=== PATIENT | female | born 1960 ===

== ENCOUNTER 2016-09-11 18:12 | Emergency (ER) | payer MEDICAID ==
[2016-09-11 18:12] VITALS: BMI 27.6
[2016-09-11 18:24] VITALS: BP 115/68; PULSE 77; RESP 18; TEMP 97.8; O2SAT 100
[2016-09-11] MEDS ORDERED: Alum-Mag Hydrox-Simethicone Susp (30 mL) PO STA (20:40)
--- NOTE | 2016-09-11 20:43 | ED PDOC ---
HPI: Chest Pain Time Seen by Provider: 09/11/16 20:08 Chief Complaint (Nursing): Chest Pain Chief Complaint (Provider): Abdominal pain History Per: Patient Additional Complaint(s): 55 yo female, PMH of gastritis, presents to ED with complaints of 1 month of intermittent epigastric abdominal pain, radiating to RUQ, worsening in last 3 days. Pt notes associated nausea and metallic taste in mouth. Past Medical History Vital Signs: Last Vital Signs Temp 97.8 F 09/11/16 18:24 Pulse 77 09/11/16 18:24 Resp 18 09/11/16 18:24 BP 115/68 09/11/16 18:24 Pulse Ox 100 09/11/16 18:24 - Medical History PMH: Anxiety (per old chart, pt denies), Depression (per old chart, pt denies), Gastritis, Osteoporosis, Pancreatitis Denies: Diabetes, Hepatitis, HIV, HTN, Chronic Kidney Disease, Seizures, Sexually Transmitted Disease - Surgical History Surgical History: Appendectomy, Cholecystectomy - Family History Family History: States: Unknown Family Hx - Home Medications Home Medications: Ambulatory Orders Medication Instructions Recorded ALPRAZolam [Xanax] 0.25 mg PO DAILY PRN #10 tab 04/08/16 - Allergies Allergies/Adverse Reactions: Allergies Allergy/AdvReac Type Severity Reaction Status Date / Time tetracycline Allergy Mild RASH Verified 09/11/16 18:17 iodine Allergy ANAPHYLAXIS Verified 09/11/16 18:17 morphine Allergy ANAPHYLAXIS Verified 09/11/16 18:17 Penicillins Allergy ANAPHYLAXIS Verified 09/11/16 18:17 Tetracyclines Allergy RASH Verified 09/11/16 18:17 - ECG O2 Sat by Pulse Oximetry: 100
[2016-09-11 21:14] LABS: BASO % 0.5 % (0.0-2.0); EOS # 0.2 K/uL (0.0-0.7); EOS % 4.3 % (0.0-4.0); HEMATOCRIT 35.8 % (34.0-47.0); LYMPH # 2.2 K/uL (1.0-4.3); LYMPH % 38.8 % (20.0-40.0); MEAN CELL VOLUME 93.6 fl (81.0-99.0); MEAN CORPUSCULAR HEMOGLOBIN 30.6 pg (27.0-31.0); MEAN CORPUSCULAR HGB CONC 32.7 g/dL (33.0-37.0); MEAN PLATELET VOLUME 8.1 fl (7.2-11.7); MONO # 0.4 K/uL (0.0-0.8); MONO % 6.7 % (0.0-10.0); NEUT # 2.8 K/uL (1.8-7.0); NEUT % 49.7 % (50.0-75.0); RED CELL DISTRIBUTION WIDTH 13.2 % (11.5-14.5); WHITE BLOOD COUNT 5.6 K/uL (4.8-10.8)
[2016-09-11 21:28] LABS: RBC URINE 2 /hpf (0-3); URINE BILIRUBIN NEGATIVE (NEGATIVE); URINE BLOOD NEGATIVE (NEGATIVE); URINE COLOR STRAW (YELLOW); URINE GLUCOSE (UA) NEG (Normal); URINE KETONE NEGATIVE (NEGATIVE); URINE LEUKOCYTE ESTERASE MOD Leu/uL (Negative); URINE PROTEIN NEGATIVE (NEGATIVE); URINE UROBILINOGEN 0.2-1.0 mg/dL (0.2-1.0); WBC URINE 8 /hpf (0-5)
[2016-09-11 21:33] LABS: ALB/GLOB RATIO 1.1 (1.0-2.1); ALKALINE PHOSPHATASE 99 U/L (38-126); ALT/SGPT 38 U/L (9-52); AMYLASE 155 U/L (30-110); AST/SGOT 22 U/L (14-36); BILIRUBIN,TOTAL 0.2 mg/dl (0.2-1.3); BLOOD UREA NITROGEN 15 mg/dl (7-17); CALCIUM 9.5 mg/dL (8.4-10.2); CARBON DIOXIDE 24 mmol/L (22-30); CHLORIDE 108 mmol/L (98-107); GFR AFRICAN-AMERICAN > 60; GLUCOSE,RANDOM 89 mg/dL (65-105); LIPASE 229 U/L (23-300); SODIUM 141 mmol/l (132-148); TOTAL PROTEIN 7.6 G/DL (6.3-8.2)
--- NOTE | 2016-09-12 12:09 | RAD ---
HISTORY: upper abdominal pain COMPARISON: Chest x-ray performed 04/10/16, CT chest without contrast performed 07/26/16 TECHNIQUE: Chest, one view. FINDINGS: External cardiac monitoring leads. LUNGS: No focal consolidation. Please note that chest x-ray has limited sensitivity for the detection of pulmonary masses. PLEURA: No significant pleural effusion identified. No definite pneumothorax . CARDIOVASCULAR: The cardiomediastinal silhouette appears within normal limits of size. OSSEOUS STRUCTURES: No acute osseous abnormality identified. VISUALIZED UPPER ABDOMEN: Unremarkable. OTHER FINDINGS: None. IMPRESSION: No focal consolidation, significant pleural effusion, or definite pneumothorax identified.
--- NOTE | 2016-09-14 12:01 | CARD ---
APPROVED REPORT EKG Measurement Heart [id number] <Conclusion> Normal sinus rhythm Normal ECG
== END 2016-09-12 01:25 | disposition home or self-care (01) ==
LOC: H.ER 18:12
DX: R10.13 Epigastric pain (principal); R11.0 Nausea; Z88.0 Allergy status to penicillin

== ENCOUNTER 2016-09-19 13:15 | Observation (INO) | payer MEDICAID ==
[2016-09-19 13:24] VITALS: BMI 25.2
[2016-09-19 13:26] VITALS: BP 122/72; PULSE 80; RESP 19; TEMP 98.1; O2SAT 99
[2016-09-19] MEDS ORDERED: Sodium Chloride 0.9% 1,000 ML IV STA (14:07)
--- NOTE | 2016-09-19 14:25 | ED PDOC ---
HPI: Abdomen Time Seen by Provider: 09/19/16 13:30 Chief Complaint (Nursing): Abdominal Pain Chief Complaint (Provider): Abdominal Pain History Per: Patient History/Exam Limitations: no limitations Onset/Duration Of Symptoms: Days (x2 weeks) Location Of Pain/Discomfort: RUQ (radiating to the back (right side)) Quality Of Discomfort: Gas Associated Symptoms: Diarrhea (Yellow-greenish in color), Back Pain. denies: Fever Additional Complaint(s): 55 y/o female with a past medical history of pancreatitis presents to the emergency department complaining of abdominal pain that radiates to the right side of the back pain. Associated with gases and diarrhea (green-yellowish in color). Denies any further complaints. Past Medical History Reviewed: Historical Data, Nursing Documentation, Vital Signs Vital Signs: Last Vital Signs Temp 98.1 F 09/19/16 13:24 Pulse 80 09/19/16 13:24 Resp 19 09/19/16 13:24 BP 122/72 09/19/16 13:24 Pulse Ox 99 09/19/16 15:41 - Medical History PMH: Anxiety (per old chart, pt denies), Depression (per old chart, pt denies), Gastritis, Osteoporosis, Pancreatitis Denies: Diabetes, Hepatitis, HIV, HTN, Chronic Kidney Disease, Seizures, Sexually Transmitted Disease - Surgical History Surgical History: Appendectomy, Cholecystectomy, - Family History Family History: States: Unknown Family Hx - Social History Current smoker - smoking cessation education provided: No Alcohol: None Drugs: Denies - Home Medications Home Medications: Ambulatory Orders Medication Instructions Recorded Esomeprazole Magnesium [Nexium] 20 mg PO DAILY #20 ecc 09/12/16 ALPRAZolam [Xanax] 0.25 mg PO BID PRN 09/19/16 Citalopram Hydrobromide [Celexa] 10 mg PO DAILY 09/19/16 Famotidine [Pepcid] 20 mg PO BID PRN #10 tab 09/19/16 - Allergies Allergies/Adverse Reactions: Allergies Allergy/AdvReac Type Severity Reaction Status Date / Time tetracycline Allergy Mild RASH Verified 09/19/16 13:24 iodine Allergy ANAPHYLAXIS Verified 09/19/16 13:24 morphine Allergy ANAPHYLAXIS Verified 09/19/16 13:24 Penicillins Allergy ANAPHYLAXIS Verified 09/19/16 13:24 Tetracyclines Allergy RASH Verified 09/19/16 13:24 Review of Systems ROS Statement: Except As Marked, All Systems Reviewed And Found Negative Constitutional: Negative for: Fever Gastrointestinal: Positive for: Abdominal Pain, Diarrhea, Other (Gases) Musculoskeletal: Positive for: Back Pain Physical Exam - Reviewed Nursing Documentation Reviewed: Yes Vital Signs Reviewed: Yes - Physical Exam Appears: Positive for: Well Head Exam: Positive for: ATRAUMATIC, NORMAL INSPECTION, NORMOCEPHALIC Skin: Positive for: Normal Color, Warm, Dry Eye Exam: Positive for: Normal appearance Gastrointestinal/Abdominal: Positive for: Soft, Tenderness (Epigastric tenderness). Negative for: Normal Exam - Laboratory Results Result Diagrams: 09/19/16 14:11 09/19/16 14:11 - ECG O2 Sat by Pulse Oximetry: 99 (RA) Pulse Ox Interpretation: Normal Medical Decision Making Medical Decision Making: Time: 1407 Initial impression: Abdominal pain Initial plan: --Abd & Pelvis w/o PO or IV Contrast CT --COMP metabolic panel --Lipase --Cbc w/ differential --Pepcid 20 mg IVP --Sodium Chloride 1,000 ml IV 150 mls/hr --Zofran INJ 4 mg IV --Admit to hospital routine: Observation for abdominal pain. Scribe Attestation: Documented by Bailee Valero, acting as a scribe for Yoandy Mendez MD. Provider Scribe Attestation: All medical record entries made by the Scribe were at my direction and personally dictated by me. I have reviewed the chart and agree that the record accurately reflects my personal performance of the history, physical exam, medical decision making, and the department course for this patient. I have also personally directed, reviewed, and agree with the discharge instructions and disposition. ED OBSERVATION Date of observation admission: 09/19/16 Time of observation admission: 14:09 - Observation admission statement Patient is being placed in observation because:: abdominal pain. - Goals of Observation Goals of observation are:: pending CT scan, and reassessment. - Progress Note Progress Note: 09/19/16 15:06 --Abdomen/Pelvis CT FINDINGS: LOWER THORAX: Unremarkable. LIVER: Unremarkable. No gross lesion or ductal dilatation. GALLBLADDER AND BILE DUCTS: Gallbladder not seen. No intrahepatic biliary ductal dilatation. PANCREAS: Unremarkable. No mass. No ductal dilatation. SPLEEN: No splenomegaly. Punctate calcification in the spleen likely granuloma. ADRENALS: Unremarkable. KIDNEYS AND URETERS: Unremarkable. No stone or hydronephrosis. BLADDER: Grossly unremarkable. REPRODUCTIVE: Please note that evaluation of gynecologic organs is not optimal on CT imaging. APPENDIX: No evidence of acute appendicitis. BOWEL: Collapsed colon throughout its course limiting evaluation. Minimal diverticulosis without evidence of diverticulitis. PERITONEUM: Unremarkable. No fluid collection. No free air. LYMPH NODES: No enlarged lymph nodes. VASCULATURE: Unremarkable. No aortic aneurysm. BONES: No fracture or destructive lesion. OTHER FINDINGS: Calcified nodule in the posterior soft tissues on the left. IMPRESSION: No acute findings. Time: 15:39 --Labs were reviewed and show no significant abnormalities. Lipase results are normal. --Patient is ready for discharge. --Upon provider reevaluation patient is feeling better, is medically stable, and requires no further treatment in the ED at this time. Patient will be discharged home with Rx for Pepcid 20 mg. Counseling was provided and all questions were answered regarding diagnosis and need for follow up with primary care doctor. There is agreement to discharge plan. Return if symptoms persist or worsen. Clinical Impression: Gastritis Disposition - Clinical Impression Clinical Impression: Gastritis - Patient ED Disposition Is Patient to be Admitted: No Counseled Patient/Family Regarding: Studies Performed, Diagnosis, Need For Followup - Disposition Disposition: Routine/Home Disposition Time: 15:00 Condition: STABLE
[2016-09-19 14:30] LABS: BASO % 0.8 % (0.0-2.0); EOS # 0.1 K/uL (0.0-0.7); EOS % 2.4 % (0.0-4.0); HEMOGLOBIN 12.4 g/dL (12.0-16.0); LYMPH # 1.7 K/uL (1.0-4.3); LYMPH % 34.2 % (20.0-40.0); MEAN CELL VOLUME 93.2 fl (81.0-99.0); MEAN CORPUSCULAR HGB CONC 33.2 g/dL (33.0-37.0); MEAN PLATELET VOLUME 8.8 fl (7.2-11.7); MONO # 0.4 K/uL (0.0-0.8); MONO % 8.3 % (0.0-10.0); NEUT # 2.7 K/uL (1.8-7.0); NEUT % 54.3 % (50.0-75.0); NRBC % 0.1 % (0.0-0.0); RED CELL DISTRIBUTION WIDTH 13.3 % (11.5-14.5); WHITE BLOOD COUNT 4.9 K/uL (4.8-10.8)
[2016-09-19 14:48] LABS: ALB/GLOB RATIO 1.2 (1.0-2.1); ALBUMIN 4.1 g/dL (3.5-5.0); ALT/SGPT 32 U/L (9-52); AST/SGOT 22 U/L (14-36); BLOOD UREA NITROGEN 12 mg/dl (7-17); CALCIUM 9.8 mg/dL (8.4-10.2); GFR AFRICAN-AMERICAN > 60; GFR NON-AFRICAN AMERICAN > 60; LIPASE 152 U/L (23-300)
--- NOTE | 2016-09-19 15:08 | CT ---
PROCEDURE: CT Abdomen and Pelvis without contrast. HISTORY: abdominal pain COMPARISON: 08/11/2015 TECHNIQUE: Contiguous axial images of the abdomen and pelvis. No oral or IV contrast given. Coronal and Sagittal reformats generated. Please note that due to lack of intravenous and oral contrast, evaluation of soft tissue structures and bowel is limited. Radiation dose: Total exam DLP = 550.75 mGy-cm. This CT exam was performed using one or more of the following dose reduction techniques: Automated exposure control, adjustment of the mA and/or kV according to patient size, and/or use of iterative reconstruction technique. FINDINGS: LOWER THORAX: Unremarkable. LIVER: Unremarkable. No gross lesion or ductal dilatation. GALLBLADDER AND BILE DUCTS: Gallbladder not seen. No intrahepatic biliary ductal dilatation. PANCREAS: Unremarkable. No mass. No ductal dilatation. SPLEEN: No splenomegaly. Punctate calcification in the spleen likely granuloma. ADRENALS: Unremarkable. KIDNEYS AND URETERS: Unremarkable. No stone or hydronephrosis. BLADDER: Grossly unremarkable. REPRODUCTIVE: Please note that evaluation of gynecologic organs is not optimal on CT imaging. APPENDIX: No evidence of acute appendicitis. BOWEL: Collapsed colon throughout its course limiting evaluation. Minimal diverticulosis without evidence of diverticulitis. PERITONEUM: Unremarkable. No fluid collection. No free air. LYMPH NODES: No enlarged lymph nodes. VASCULATURE: Unremarkable. No aortic aneurysm. BONES: No fracture or destructive lesion. OTHER FINDINGS: Calcified nodule in the posterior soft tissues on the left. IMPRESSION: No acute findings.
== END 2016-09-19 16:06 | disposition home or self-care (01) ==
LOC: H.ER 13:15 → H.EROBSV 14:09
PROVIDERS: ADMIT Emergency Medicine; ATTEND Emergency Medicine
DX: K29.70 Gastritis, unspecified, without bleeding (principal); R10.9 Unspecified abdominal pain; M81.0 Age-related osteoporosis without current pathological fracture

== ENCOUNTER 2016-10-21 19:53 | Inpatient (IN) | payer MEDICAID ==
--- NOTE | 2016-10-21 20:57 | ED PDOC ---
HPI: Chest Pain Time Seen by Provider: 10/21/16 20:05 Chief Complaint (Nursing): Chest Pain Chief Complaint (Provider): Chest Pain History Per: Patient History/Exam Limitations: no limitations Onset/Duration Of Symptoms: Hrs (1) Current Symptoms Are (Timing): Still Present Additional Complaint(s): aRma Ashton is a 55 y/o female, with a past medical history of Gastritis and GERD , presenting to the ER on 10/21/2016 with complaints of chest pain onset one hour prior to arrival. Patient reports pain, which is non-radiating and non- exertional, is localized to the anterior chest wall and is associated with gas ( in the form of burping). Patient states pain has minimally resolved but is present upon arrival, prompting her to seek medical evaluation. When the chest pain started, the patient experienced associate sweats and nausea but no vomiting, dyspnea, or abdominal pain. Patient notes she used to take Pepcid and Omeprazole but is now on a new PPI. Past Medical History Reviewed: Historical Data, Nursing Documentation, Vital Signs Vital Signs: Last Vital Signs Temp 98 F 10/21/16 19:56 Pulse 72 10/21/16 20:09 Resp 15 10/21/16 19:56 BP 132/78 10/21/16 19:56 Pulse Ox 100 10/21/16 21:05 - Medical History PMH: Anxiety (per old chart, pt denies), Depression (per old chart, pt denies), Gastritis, GERD, Osteoporosis, Pancreatitis Denies: Diabetes, Hepatitis, HIV, HTN, Chronic Kidney Disease, Seizures, Sexually Transmitted Disease - Surgical History Surgical History: Appendectomy, Cholecystectomy, - Family History Family History: States: Unknown Family Hx - Social History Current smoker - smoking cessation education provided: No Alcohol: None Drugs: Denies - Home Medications Home Medications: Ambulatory Orders Medication Instructions Recorded Rabeprazole Sodium [Aciphex] 1 tab PO QAM 10/21/16 Sucralfate [Carafate Oral Susp] 1 gm PO DAILY 10/21/16 - Allergies Allergies/Adverse Reactions: Allergies Allergy/AdvReac Type Severity Reaction Status Date / Time tetracycline Allergy Mild RASH Verified 10/21/16 19:59 iodine Allergy ANAPHYLAXIS Verified 10/21/16 19:59 morphine Allergy ANAPHYLAXIS Verified 10/21/16 19:59 Penicillins Allergy ANAPHYLAXIS Verified 10/21/16 19:59 Tetracyclines Allergy RASH Verified 10/21/16 19:59 RITIKA Risk Score for UA/NSTEMI - RITIKA Risk Score Age > 64: NO 3 or more CAD Risk Factors: NO Known CAD (Stenosis greater than 50%): NO Aspirin use in past 7 days: NO Severe Angina: NO EKG ST changes greater than 0.5mm: NO Positive Cardiac Marker: NO RITIKA Score: 0 Risk %: 5% Wells Criteria for PE - Wells Criteria for Pulmonary Embolism Clinical Signs and Symptoms of DVT: No P.E is #1 Diagnosis, or Equally Likely: No Heart Rate >100: No Immobilization at least 3 days;Surgery previous 4 weeks: No Previous, objectively diagnosed PE or DVT: No Hemoptysis: No Malignancy w/treatment within 6 months, or palliative: No Total Score: 0 Review of Systems ROS Statement: Except As Marked, All Systems Reviewed And Found Negative Constitutional: Positive for: Sweats Cardiovascular: Positive for: Chest Pain Respiratory: Negative for: Shortness of Breath Gastrointestinal: Positive for: Nausea. Negative for: Vomiting, Abdominal Pain Physical Exam - Reviewed Nursing Documentation Reviewed: Yes Vital Signs Reviewed: Yes - Physical Exam Appears: Positive for: Non-toxic, No Acute Distress Head Exam: Positive for: ATRAUMATIC, NORMOCEPHALIC Skin: Positive for: Normal Color. Negative for: Rash Eye Exam: Positive for: Normal appearance, EOMI, PERRL ENT: Positive for: Normal ENT Inspection. Negative for: Pharyngeal Erythema, Tonsillar Exudate, Tonsillar Swelling Neck: Positive for: Normal, Painless ROM, Supple Cardiovascular/Chest: Positive for: Regular Rate, Rhythm. Negative for: Murmur Respiratory: Positive for: Normal Breath Sounds. Negative for: Wheezing, Respiratory Distress Gastrointestinal/Abdominal: Positive for: Normal Exam, Soft. Negative for: Tenderness Extremity: Positive for: Normal ROM. Negative for: Deformity, Swelling Neurologic/Psych: Positive for: Alert, Oriented. Negative for: Motor/Sensory Deficits - Laboratory Results Result Diagrams: 10/21/16 20:50 10/21/16 20:50 - ECG ECG Rhythm: Positive for: Normal QRS, Normal ST Segment, Sinus Rhythm (@71 ). Negative for: ST/T Changes O2 Sat by Pulse Oximetry: 100 Medical Decision Making Medical Decision Makin:25 Initial Impression- Chest pain; differential diagnosis includes ACS, considering also Gastritis and GERD Initial Plan- * EKG * BMP * Troponin * CBC w/ differential * CXR * Aspirin 325 mg PO * Pepcid 20 mg PO Documented by Izabel Hickey, acting as a scribe for Tuan Thomas MD All medical record entries made by the Scribe were at my direction and personally dictated by me. I have reviewed the chart and agree that the record accurately reflects my personal performance of the history, physical exam, medical decision making, and the department course for this patient. I have also personally directed, reviewed, and agree with the discharge instructions and disposition. Disposition - Clinical Impression Clinical Impression: Chest pain - Patient ED Disposition Is Patient to be Admitted: Yes Discussed With DrDeepti: Giovanny Ochoa Doctor Will See Patient In The: Hospital Counseled Patient/Family Regarding: Studies Performed, Diagnosis - Disposition Referrals: Meera Kessler MD [Primary Care Provider] - Disposition Time: 23:00 Condition: FAIR Forms: [facility] [facility] ([place]) - Pt Status Changed To: Hospital Disposition Of: Observation - POA Present On Arrival: None
[2016-10-21 20:59] LABS: BASO % 0.8 % (0.0-2.0); EOS # 0.2 K/uL (0.0-0.7); EOS % 4.1 % (0.0-4.0); HEMOGLOBIN 12.7 g/dL (12.0-16.0); LYMPH # 1.8 K/uL (1.0-4.3); LYMPH % 38.2 % (20.0-40.0); MEAN CELL VOLUME 92.9 fl (81.0-99.0); MEAN CORPUSCULAR HEMOGLOBIN 30.7 pg (27.0-31.0); MEAN CORPUSCULAR HGB CONC 33.1 g/dL (33.0-37.0); MEAN PLATELET VOLUME 8.2 fl (7.2-11.7); MONO # 0.5 K/uL (0.0-0.8); MONO % 10.1 % (0.0-10.0); NEUT # 2.3 K/uL (1.8-7.0); NEUT % 46.8 % (50.0-75.0); RBC 4.15 Mil/uL (3.80-5.20); RED CELL DISTRIBUTION WIDTH 13.1 % (11.5-14.5); WHITE BLOOD COUNT 4.8 K/uL (4.8-10.8)
[2016-10-21 21:17] LABS: BLOOD UREA NITROGEN 14 mg/dl (7-17); CALCIUM 9.6 mg/dL (8.4-10.2); GFR AFRICAN-AMERICAN > 60; GFR NON-AFRICAN AMERICAN > 60
[2016-10-22] MEDS ORDERED: Pneumococcal 23-Valent Vaccine IM ONE (01:24)
[2016-10-22] MEDS ORDERED: Alum-Mag Hydrox-Simethicone Susp (30 mL) PO ONE (03:02)
--- NOTE | 2016-10-22 07:17 | RAD ---
HISTORY: chest pain COMPARISON: No prior. TECHNIQUE: Chest PA and lateral FINDINGS: LUNGS: No active pulmonary disease. PLEURA: No significant pleural effusion identified. No pneumothorax apparent. CARDIOVASCULAR: Normal. OSSEOUS STRUCTURES: No significant abnormalities. VISUALIZED UPPER ABDOMEN: Normal. OTHER FINDINGS: None. IMPRESSION: No active disease.
[2016-10-22] MEDS: Alum-Mag Hydrox-Simethicone Susp (30 mL) PO PRN ×2 (08:20→22:17)
[2016-10-22] MEDS: Enoxaparin 40 mg Syringe SC SCH (08:20)
[2016-10-22 09:27] VITALS: BMI 23.4
--- NOTE | 2016-10-22 10:31 | HP ---
CHIEF COMPLIANT: Chest pain. HISTORY OF PRESENT ILLNESS: This is a 55-year-old female, patient of Dr. Bro, known for anxiety, depression, gastritis, gastroesophageal reflux disease, osteoporosis, and history of pancreatitis who was having chest pain about one year before admission to the hospital, and the patient was admitted for further management. REVIEW OF SYSTEMS: Positive for chest pain. Review of systems is otherwise negative for headache; dizziness; syncope; loss of consciousness; shortness of breath; nausea; vomiting; diarrhea; constipation; or any knee. joint, or11 extremity pain. Review of systems of all other organ systems is unremarkable. PAST MEDICAL HISTORY: Significant for anxiety, depression, gastritis, gastroesophageal reflux disease, osteoporosis. PAST SURGICAL HISTORY: Remarkable for section, cholecystectomy, and appendectomy. PERSONAL HISTORY: The patient is currently nonsmoker, nondrinker. No substance abuse. MEDICATION: The patient is on and sucralfate. ALLERGIES: THE PATIENT IS NOT ALLERGIES TO TETRACYCLINE, IODINE, MORPHINE, AND PENICILLIN. FAMILY HISTORY: Noncontributory. PHYSICAL EXAMINATION: GENERAL: Well developed, well nourished, 55-year-old female, in no acute distress. VITAL SIGNS: Temperature 97.8, pulse 69, respiration 18, and blood pressure 117/74. HEENT: Pupils reacting to light. No JVD, no thyromegaly and no lymphadenopathy. No nystagmus. Normocephalic and atraumatic scalp. HEART: S1 and S2 normal, regular. No significant murmur, gallop, or rub is heard. LUNGS: Chest good bilateral air entry. No rales or rhonchi. ABDOMEN: Soft, nontender. No organomegaly. No fluid. Bowel sounds are plus. EXTREMITIES: No edema. No calf swelling or tenderness. No acute ischemia. CENTRAL NERVOUS SYSTEM: The patient is alert, awake, and oriented x3. There is no sign of any acute gross focal, motor or sensory neurological deficit. DIAGNOSTIC DATA: Available diagnostic data reviewed. Telemetry monitoring does not reveal significant arrhythmia. EKG shows normal sinus rhythm without any acute ST-T changes. Chest x-ray is clear. Troponin level is negative. Sodium 140, potassium 3.8, chloride 107, bicarb 26, BUN 14, creatinine 0.7, glucose is 106. WBC is 4.8, hemoglobin 12.7, hematocrit 38.5, platelets are 234. ADMITTING IMPRESSION: Chest pain, acute coronary syndrome, gastritis, gastroesophageal reflux disease, anxiety, and depression. PLAN: As ordered. Case and plan discussed with the patient. Giovanny Ochoa MD
--- NOTE | 2016-10-22 11:26 | CP.PCM.CON ---
History of Present Illness - History of Present Illness History of Present Illness: I was asked to see patient by Dr. Ochoa. Patient is a 55 year old with a PMH HTN who presents with chest pain. Her symptoms are intermittent and left sided. Symptoms occur with walking. There is associated dyspnea and symptoms improve withy rest. She denies current chest pain. Review of Systems - Constitutional Constitutional: absent: As Per HPI, Anorexia, Chills, Daytime Sleepiness, Excessive Sweating, Fatigue, Fever, Frequent Falls, Headache, Increased Appetite , Lethargy, Malaise, Night Sweats, Snoring, Sleep Apnea, Weight Gain, Weight Loss, Weakness, Other - EENT Eyes: absent: As Per HPI, Blind Spots, Blurred Vision, Change in Vision, Decreased Night Vision, Diplopia, Discharge, Dry Eye, Exophthalmos, Floaters, Irritation, Itchy Eyes, Loss of Peripheral Vision, Pain, Photophobia, Requires Corrective Lenses, Sees Flashes, Spots in Vision, Tunnel Vision, Other Visual Disturbances, Loss of Vision, Other Ears: absent: As Per HPI, Decreased Hearing, Ear Discharge, Ear Pain, Tinnitus, Abnormal Hearing, Disequilibrium, Dizziness, Other Nose/Mouth/Throat: absent: As Per HPI, Epistaxis, Nasal Congestion, Nasal Discharge, Nasal Obstruction, Nasal Trauma, Nose Pain, Post Nasal Drip, Sinus Pain, Sinus Pressure, Bleeding Gums, Change in Voice, Dental Pain, Dry Mouth, Dysphagia, Halitosis, Hoarsness, Lip Swelling, Mouth Lesions, Mouth Pain, Odynophagia, Sore Throat, Throat Swelling, Tongue Swelling, Facial Pain, Neck Pain, Neck Mass, Other - Breasts Breasts: absent: As Per HPI, Change in Shape, Mass, Pain, Nipple Discharge, Nipple Inversion, Skin Changes, Swelling, Other - Cardiovascular Cardiovascular: Chest Pain at Rest, Dyspnea - Respiratory Respiratory: absent: As Per HPI, Cough, Dyspnea, Hemoptysis, Dyspnea on Exertion , Wheezing, Snoring, Stridor, Pain on Inspiration, Chest Congestion, Excessive Mucous Production, Change in Mucous Color, Pain with Coughing, Other - Gastrointestinal Gastrointestinal: absent: As Per HPI, Abdominal Pain, Belching, Bloating, Change in Bowel Habits, Change in Stool Character, Coffee Ground Emesis, Constipation, Cramping, Diarrhea, Dyspepsia, Dysphagia, Early Satiety, Excessive Flatus, Fecal Incontinence, Heartburn, Hematemesis, Hematochezia, Loose Stools, Melena, Nausea, Odynophagia, Temesmus, Vomiting, Other - Genitourinary Genitourinary: absent: As Per HPI, Change in Urinary Stream, Difficulty Urinating, Dysuria, Flank Pain, Hematuria, Pyuria, Nocturia, Urinary Incontinence, Urinary Frequency, Urinary Hesitance, Urinary Urgency, Voiding Freq/Small Amts, Freq UTI, Hx Renal/Bladder Calculi, Hx /Renal Surgery, Bladder Distension, Other - Musculoskeletal Musculoskeletal: absent: As Per HPI, Abnormal Gait, Arthralgias, Atrophy, Back Pain, Deformity, Joint Swelling, Limited Range of Motion, Loss of Height, Muscle Cramps, Muscle Weakness, Myalgias, Neck Pain, Numbness, Radiating Pain into Limb, Stiffness, Tingling, Other - Integumentary Integumentary: absent: As Per HPI, Acne, Alopecia, Bleeding Lesions, Change in Hair, Change in Nails, Change in Pigmentation, Changing Lesions, Dry Skin, Erythema, Furuncle, Hirsutism, Lesions, New Lesions, Non-Healing Lesions, Photosensitivity, Pruritus, Rash, Skin Pain, Skin Ulcer, Sores, Striae, Swelling , Unusual Bruising, Wounds, Jaundice, Other - Neurological Neurological: absent: As Per HPI, Abnormal Gait, Abnormal Hearing, Abnormal Movements, Abnormal Speech, Behavioral Changes, Burning Sensations, Confusion, Convulsions, Disequilibrium, Dizziness, Numbness, Focal Weakness, Frequent Falls , Headaches, Lack of Coordination, Loss of Vision, Memory Loss, Paresthesias, Radicular Pain, Restless Legs, Sensory Deficit, Syncope, Tingling, Tremor, Vertigo, Weakness, Other Visual Disturbances, Other - Psychiatric Psychiatric: absent: As Per HPI, Abnormal Sleep Pattern, Anhedonia, Anxiety, Auditory Hallucinations, Behavioral Changes, Change in Appetite, Change in Libido, Confusion, Depression, Difficulty Concentrating, Hallucinations, Homicidal Ideation, Hopelessness, Irritability, Memory Loss, Mood Swings, Panic Attacks, Paranoia, Suicidal Ideation, Visual Hallucinations, Tactile Hallucinations, Other - Endocrine Endocrine: absent: As Per HPI, Change in Body Appearance, Change in Libido, Cold Intolorance, Deepening of Voice, Excessive Sweating, Fatigue, Flushing, Heat Intolorance, Increase in Ring/Shoe/Hat Size, Palpitations, Polydipsia, Polyphagia, Polyuria, Other - Hematologic/Lymphatic Hematologic: absent: As Per HPI, Easy Bleeding, Easy Bruising, Lymphadenopathy, Other Past Patient History - Infectious Disease Hx of Infectious Diseases: None - Past Medical History & Family History Past Medical History?: Yes - Past Social History Smoking Status: Never Smoked - CARDIAC Hx Cardiac Disorders: No Hx Hypertension: No - PULMONARY Hx Respiratory Disorders: No Hx Tuberculosis: No - NEUROLOGICAL Hx Neurological Disorder: No Hx Seizures: No - HEENT Hx HEENT Problems: No - RENAL Hx Chronic Kidney Disease: No - ENDOCRINE/METABOLIC Hx Endocrine Disorders: No - HEMATOLOGICAL/ONCOLOGICAL Hx Blood Disorders: No Hx Human Immunodeficiency Virus (HIV): No - INTEGUMENTARY Hx Dermatological Problems: No - MUSCULOSKELETAL/RHEUMATOLOGICAL Hx Musculoskeletal Disorders: Yes Hx Falls: No Hx Osteoporosis: Yes - GASTROINTESTINAL Hx Gastrointestinal Disorders: Yes Hx Gastritis: Yes Hx Gastroesophageal Reflux: Yes Hx Pancreatitis: Yes - GENITOURINARY/GYNECOLOGICAL Hx Genitourinary Disorders: No Hx Sexually Transmitted Disorders: No - PSYCHIATRIC Hx Psychophysiologic Disorder: Yes Hx Anxiety: Yes Hx Depression: Yes - SURGICAL HISTORY Hx Surgeries: Yes Hx Appendectomy: Yes Hx Section: Yes (x2) Hx Cholecystectomy: Yes - ANESTHESIA Hx Anesthesia: Yes Hx Anesthesia Reactions: No Hx Malignant Hyperthermia: No Meds Allergies/Adverse Reactions: Allergies Allergy/AdvReac Type Severity Reaction Status Date / Time tetracycline Allergy Mild RASH Verified 10/21/16 19:59 iodine Allergy ANAPHYLAXIS Verified 10/21/16 19:59 morphine Allergy ANAPHYLAXIS Verified 10/21/16 19:59 Penicillins Allergy ANAPHYLAXIS Verified 10/21/16 19:59 Tetracyclines Allergy RASH Verified 10/21/16 19:59 - Medications Medications: Current Medications Al Hydrox/Mg Hydrox/Simethicone (Maalox Plus 30 Ml) 30 ml PO Q6 PRN PRN Reason: Heartburn Last Admin: 10/22/16 08:20 Dose: 30 ml Enoxaparin Sodium (Lovenox) 40 mg SC DAILY IVAN PRN Reason: Protocol Last Admin: 10/22/16 08:20 Dose: 40 mg Physical Exam - Constitutional Appears: Non-toxic - Head Exam Head Exam: NORMAL INSPECTION - Eye Exam Eye Exam: Normal appearance - ENT Exam ENT Exam: Mucous Membranes Moist - Neck Exam Neck exam: Positive for: Full Rom - Respiratory Exam Respiratory Exam: NORMAL BREATHING PATTERN - Cardiovascular Exam Cardiovascular Exam: REGULAR RHYTHM - GI/Abdominal Exam GI & Abdominal Exam: Normal Bowel Sounds - Rectal Exam Rectal Exam: Deferred - Extremities Exam Extremities exam: Negative for: pedal edema - Back Exam Back exam: NORMAL INSPECTION - Neurological Exam Neurological exam: Alert, Oriented x3 - Psychiatric Exam Psychiatric exam: Normal Affect - Skin Skin Exam: Normal Color Results - Vital Signs Recent Vital Signs: Last Vital Signs Temp 98.0 F 10/22/16 08:20 Pulse 71 10/22/16 08:20 Resp 20 10/22/16 08:20 BP 109/64 10/22/16 08:20 Pulse Ox 98 10/22/16 08:20 - Labs Result Diagrams: 10/21/16 20:50 10/21/16 20:50 Labs: Laboratory Results - last 24 hr 10/22/16 05:30 Troponin I < 0.0120 - EKG Data EKG Interpreted by: Myself EKG shows normal: Sinus rhythm Assessment & Plan (1) Chest pain Assessment and Plan: Symptoms are concerning for angina. Recommend monitor on telemetry. Givne the intermittent nature of her symptoms, recommend nuclear stress test for further evaluation. Status: Acute (2) HTN (hypertension) Assessment and Plan: monitor blood pressure Status: Acute
--- NOTE | 2016-10-22 12:59 | CARD ---
APPROVED REPORT EKG Measurement Heart [id number] <Conclusion> Normal sinus rhythm Normal ECG
--- NOTE | 2016-10-23 08:55 | PN ---
DATE: 10/23/2016 SUBJECTIVE: The patient was seen and examined, interim events noted. Consults noted and appreciated. Cardiology followup and intervention noted and appreciated. The patient remains in progressive care unit on telemetry monitoring. She feels better, complains of occasional abdominal discomfort and gas, but no chest pain or shortness of breath. PHYSICAL EXAMINATION: GENERAL: The patient is in no acute distress. VITAL SIGNS: Stable. HEART: S1 and S2 normal, regular. LUNGS: Good bilateral air exchange. ABDOMEN: Soft, nontender. EXTREMITIES: Some edema. No calf swelling or tenderness. No acute ischemia. CENTRAL NERVOUS SYSTEM: Essentially unchanged. DIAGNOSTIC DATA: Available diagnostic data reviewed. IMPRESSION: Overall, the patient is medically stable. The patient needs possible stress test today. PLAN: As ordered. Case and plan were discussed with the patient. Giovanny Ochoa MD
[2016-10-23] MEDS: Alum-Mag Hydrox-Simethicone Susp (30 mL) PO PRN ×2 (10:45→16:47)
[2016-10-23] MEDS: Enoxaparin 40 mg Syringe SC SCH ×2 (10:45→10:46)
--- NOTE | 2016-10-23 14:58 | CARD ---
APPROVED REPORT Protocol: KARI Test Type: Stress Nuclear Medications: PEPCID 20MG, ASPIRIN 325MG, LOVENOX 40MG, MAALOX 30ML Medical History: GASTRITIS, CHEST PAIN, ANXIETY, DEPRESSION PANCREATITIS, APPENDECTOMY, CHOLESYSTECTOMY, OSTEOPOROSIS, ACIDPHEX 20MG, CARAFATE 1 GM Target HR: 163 bpm Resting ECG: normal Resting Heart Rate: 78 bpm Resting Blood Pressure: 110/70mmHg submaximum (85%): 139 bpm TEST SUMMARY [id number]/65.0. [id number]/[id number]. PRETESTHYPERV.00:[id number]/65.0. PRETESTWARM-UP06:[id number]/70.0. EXERCISESTAGE 103:[id number]/70.0. EXERCISESTAGE 203:[id number]/70.1. EXERCISESTAGE 301:[id number]/70.0. [id number]/70.0. POST EXERCISE Reason for Termination: TIREDNESS Target HR: No Max HR: 153 bpm 93% of Maximum Predicted HR: 163 bpm Exercise duration: 07:31 min:sec, 3 Stage Exercise capacity: 9.3METs Max Blood Pressure: 130/75mmHg Blood Pressure response to exercise: normal resting BP - appropriate response Heart Rate response to exercise: appropriate Chest Pain: No, none Angina index: 0 Arrhythmia: No, none ST Change: No, none Deviation: 0 mm Clinical Indications Under Appropriate Use Criteria chest pain Stress EKG Interpretation NORMAL EXERCISE STRESS TEST. EXAM: Myocardial Perfusion REST/STRESS Image QualityGood Imaging Protocol The imaging protocol used to acquire images was Rest Tc-99m/stress Tc-99m 1 day Rest Spect myocardial perfusion imaging was performed in supine position 60 minutes following the injection of 10 mCi of Tc-99 Myoview. Time of rest injection: 7:54 Time of rest imagin:00 At peak stress, the patient was injected intravenously with 30mCi of Tc-99 tetrofosmin after an infusion time of minutes and seconds. Time of stress injection: 10:30 Time of stress imagin:30 Gated Stress Spect was performed 120 minutes after intravenous Tc-99 Myoview injection. The images were gated to evaluate regional wall motion and calculate ventricular ejection fraction. NUCLEAR IMAGE INTERPRETATION The rest and stress images show normal perfusion, normal contraction and thickening. LV Perfusion The perfusion of the left ventricle was normal on the standard three tomographic images and the bullseye plot images. LV Perfusion 1 The rest and stress images show normal perfusion. Wall Motion normal LVEF of 67% CONCLUSION 1. The patient is a 55 year old female referred for an exercise stress test due to chest pain. She also has a history of hypertension, anxiety and GERDS. Her medicines include aspirin and lovenox. The resting EKG shows sinus rhythm. Using a standard Kari protocol, the patient exercised for 7 minutes and 31 seconds(completing 1 minute and 31 seconds of Stage 3) at which time the test was stopped due to tiredness. She did not have any chest pain. The resting heart rate was 78 beats per minute and increased to 153 beats per minute which was 93% of the MPHR. The resting blood pressure was 110/70 and increased to 130/70. The patient reached a workload of 9.30 mets. The rhythm was sinus and there weren't any significant ST segment depressions with exercise. The nuclear scans showed normal perfusion ot the left ventricle. The LVEF on the gated study was 67%. 2. Impression: Normal exercise stress test without any chest pain or ischemic EKG changes at 93% of the MPHR. Normal blood pressure response to exercise. Good work capacity. Normal perfusion scans. LVEF of 67%. Recommendation medical treatment
[2016-10-23 15:36] VITALS: BP 97/60; PULSE 69; RESP 20; TEMP 98.5; O2SAT 96
[2016-10-24] MEDS ORDERED: RABEPRAZOLE SODIUM PO SCH (09:00)
[2016-10-24] MEDS ORDERED: Sucralfate 1 gm/10 ml Oral Susp UD PO SCH (09:00)
== END 2016-10-23 18:00 | disposition home or self-care (01) | DRG 140 ==
LOC: H.ER 19:53 → H.ERHOLD 23:14 → H.TEL 10-22 01:09 → OBSVTOIN 10-22 20:40
PROVIDERS: ADMIT Internal Medicine; ATTEND Internal Medicine
PROC: 3E0234Z Introduction of Serum, Toxoid and Vaccine into Muscle, Percutaneous Approach (ICD-10-PCS; principal; 2016-10-22)
DX: I24.9 Acute ischemic heart disease, unspecified (principal); I10 Essential (primary) hypertension; K21.9 Gastro-esophageal reflux disease without esophagitis; K29.70 Gastritis, unspecified, without bleeding; F41.9 Anxiety disorder, unspecified; F32.9 Major depressive disorder, single episode, unspecified; M81.0 Age-related osteoporosis without current pathological fracture; Z23 Encounter for immunization; Z88.0 Allergy status to penicillin; Z88.6 Allergy status to analgesic agent; Z91.041 Radiographic dye allergy status; Z90.49 Acquired absence of other specified parts of digestive tract

== ENCOUNTER 2016-10-27 17:06 | Emergency (ER) | payer MEDICAID ==
[2016-10-27 17:07] VITALS: BMI 23.4
[2016-10-27 17:15] VITALS: TEMP 98.2; O2SAT 98
--- NOTE | 2016-10-27 17:31 | ED PDOC ---
HPI: Chest Pain Time Seen by Provider: 10/27/16 17:22 Chief Complaint (Nursing): Chest Pain Chief Complaint (Provider): Chest pain History Per: Patient History/Exam Limitations: no limitations Onset/Duration Of Symptoms: Days Current Symptoms Are (Timing): Still Present Additional Complaint(s): Chest pain off and on since yesterday. Same as when she was here Sunday. Was admitted then and had a large work up and nothing was found. Has dyspnea with the chest pain. No leg pain, weakness, dizziness, vision changes, abd pain, nausea, vomit, diarrhea. No numbness, tingles. No long distance travel or hormone tx. Past Medical History Reviewed: Nursing Documentation, Vital Signs Vital Signs: Last Vital Signs Temp 98.2 F 10/27/16 17:12 Pulse 91 H 10/27/16 17:12 Resp 18 10/27/16 17:12 BP 154/79 H 10/27/16 17:12 Pulse Ox 98 10/27/16 19:30 - Medical History PMH: Anxiety, Depression, Gastritis, GERD, Osteoporosis Denies: Diabetes, Hepatitis, HIV, HTN, Chronic Kidney Disease, Seizures, Sexually Transmitted Disease - Surgical History Surgical History: Appendectomy, Cholecystectomy, - Family History Family History: States: Unknown Family Hx - Living Arrangements Living Arrangements: With Family - Social History Current smoker - smoking cessation education provided: No Alcohol: None Drugs: Denies - Home Medications Home Medications: Ambulatory Orders Medication Instructions Recorded Rabeprazole Sodium [Aciphex] 1 tab PO QAM 10/21/16 Sucralfate [Carafate Oral Susp] 1 gm PO DAILY 10/21/16 - Allergies Allergies/Adverse Reactions: Allergies Allergy/AdvReac Type Severity Reaction Status Date / Time tetracycline Allergy Mild RASH Verified 10/27/16 17:12 iodine Allergy ANAPHYLAXIS Verified 10/27/16 17:12 morphine Allergy ANAPHYLAXIS Verified 10/27/16 17:12 Penicillins Allergy ANAPHYLAXIS Verified 10/27/16 17:12 Tetracyclines Allergy RASH Verified 10/27/16 17:12 RITIAK Risk Score for UA/NSTEMI - RITIKA Risk Score Age > 64: NO 3 or more CAD Risk Factors: NO Known CAD (Stenosis greater than 50%): NO Aspirin use in past 7 days: NO Severe Angina: NO EKG ST changes greater than 0.5mm: NO Positive Cardiac Marker: NO RITIKA Score: 0 Risk %: 5% Review of Systems ROS Statement: Except As Marked, All Systems Reviewed And Found Negative Cardiovascular: Positive for: Chest Pain Respiratory: Positive for: Shortness of Breath Physical Exam - Reviewed Nursing Documentation Reviewed: Yes Vital Signs Reviewed: Yes - Physical Exam Appears: Positive for: Non-toxic, No Acute Distress Head Exam: Positive for: ATRAUMATIC, NORMAL INSPECTION, NORMOCEPHALIC Skin: Positive for: Normal Color, Warm, DRY Eye Exam: Positive for: EOMI, Normal appearance, PERRL ENT: Positive for: Normal ENT Inspection Neck: Positive for: Normal, Painless ROM Cardiovascular/Chest: Positive for: Regular Rate, Rhythm Respiratory: Positive for: CNT, Normal Breath Sounds Gastrointestinal/Abdominal: Positive for: Normal Exam, Bowel Sounds, Soft. Negative for: Tenderness Back: Positive for: Normal Inspection. Negative for: L CVA Tenderness, R CVA Tenderness Extremity: Positive for: Normal ROM. Negative for: Tenderness, Pedal Edema Neurologic/Psych: Positive for: Alert, Oriented - Laboratory Results Result Diagrams: 10/27/16 17:45 10/27/16 17:45 Interpretation Of Abn Labs: no acute - ECG ECG: Positive for: Interpreted By Me, Viewed By Me ECG Rhythm: Positive for: Normal QRS, Normal ST Segment, Sinus Rhythm O2 Sat by Pulse Oximetry: 98 Pulse Ox Interpretation: Normal - Radiology X-Ray: Read By Radiologist X-Ray Interpretation: No Acute Disease - Progress ED Course And Treament: 1744: Stable. Perfusion stress test with no acute findings on last admit. 1906: Pain free. Tolerated PO. Spoke with Dr. Ochoa. Pt. well known to him from previous admit. Does not feel pt. needs admit. Pt. to fu with pcp. AAOx3. Disposition - Clinical Impression Clinical Impression: Chest pain - Patient ED Disposition Is Patient to be Admitted: No Counseled Patient/Family Regarding: Studies Performed, Diagnosis, Need For Followup - Disposition Referrals: [facility] [Outside] (See your doctor in 3 days without fail.) Disposition: Routine/Home Disposition Time: 19:41 Condition: STABLE Additional Instructions: Return if any pain, weakness, shortness of breath in the next 3 days. Instructions: Chest Pain (ED) Forms: [employer] ([place]izen [place])
[2016-10-27] MEDS ORDERED: Sodium Chloride 0.9% 1,000 ML IV STA (17:37)
[2016-10-27 17:49] LABS: BASO % 0.4 % (0.0-2.0); EOS % 0.5 % (0.0-4.0); HEMOGLOBIN 12.4 g/dL (12.0-16.0); LYMPH # 1.3 K/uL (1.0-4.3); LYMPH % 14.2 % (20.0-40.0); MEAN CELL VOLUME 92.1 fl (81.0-99.0); MEAN CORPUSCULAR HEMOGLOBIN 30.6 pg (27.0-31.0); MEAN CORPUSCULAR HGB CONC 33.2 g/dL (33.0-37.0); MEAN PLATELET VOLUME 8.2 fl (7.2-11.7); MONO # 0.4 K/uL (0.0-0.8); MONO % 4.6 % (0.0-10.0); NEUT # 7.1 K/uL (1.8-7.0); NEUT % 80.3 % (50.0-75.0); RBC 4.05 Mil/uL (3.80-5.20); RED CELL DISTRIBUTION WIDTH 13.2 % (11.5-14.5); WHITE BLOOD COUNT 8.8 K/uL (4.8-10.8)
[2016-10-27 18:01] LABS: ALB/GLOB RATIO 1.2 (1.0-2.1); ALBUMIN 4.2 g/dL (3.5-5.0); ALT/SGPT 41 U/L (9-52); AST/SGOT 24 U/L (14-36); BLOOD UREA NITROGEN 12 mg/dl (7-17); CALCIUM 9.9 mg/dL (8.4-10.2); GFR AFRICAN-AMERICAN > 60; GFR NON-AFRICAN AMERICAN > 60; LIPASE 172 U/L (23-300)
[2016-10-27 18:09] LABS: INR 1.1 (0.9-1.2); PARTIAL THROMBOPLASTIN TIME 29.1 Seconds (25.6-37.1); PROTHROMBIN TIME 11.5 Seconds (9.8-13.1)
--- NOTE | 2016-10-27 18:12 | RAD ---
HISTORY: Dyspnea. Portable study 18:04. COMPARISON: 10/21/2016. FINDINGS: LUNGS: No active pulmonary disease. PLEURA: No significant pleural effusion identified, no pneumothorax apparent. CARDIOVASCULAR: No radiographic findings to suggest acute or significant cardiovascular disease. OSSEOUS STRUCTURES: No significant abnormalities. VISUALIZED UPPER ABDOMEN: Normal. OTHER FINDINGS: None. IMPRESSION: No active disease. No significant interval change compared to the prior examination(s). All
[2016-10-27 19:41] VITALS: BP 135/80; PULSE 75; RESP 16
--- NOTE | 2016-10-28 12:03 | CARD ---
APPROVED REPORT EKG Measurement Heart [id number] <Conclusion> Normal sinus rhythm Normal ECG
== END 2016-10-27 20:06 | disposition home or self-care (01) ==
LOC: H.ER 17:06
DX: R07.9 Chest pain, unspecified (principal)

== ENCOUNTER 2017-01-02 21:50 | Emergency (ER) | payer MEDICAID ==
[2017-01-02 21:50] VITALS: BMI 23.4
[2017-01-02 22:05] VITALS: BP 140/76; RESP 18; TEMP 98; O2SAT 100
[2017-01-02] MEDS ORDERED: Sodium Chloride 0.9% 1,000 ML IV STA (23:40)
--- NOTE | 2017-01-02 23:55 | ED PDOC ---
HPI: Headache Time Seen by Provider: 01/02/17 22:38 Chief Complaint (Nursing): Chest Pain Chief Complaint (Provider): Headache History Per: Patient History/Exam Limitations: no limitations Onset/Duration Of Symptoms: Days (x2) Current Symptoms Are (Timing): Still Present Associated Symptoms: denies: Photophobia, Nausea, Vomiting Additional Complaint(s): 56 year old female presents to ED with complaints of headachce x2 days and has a past medical history of depression and anxiety. Notes that pain is right sided and that "nothing helps" mitigate the pain. (+) redness in eyes (resolved with eyedrops), facial pain, and chronic epigastric pain. (-) photosensitivity, nausea, vomiting, fever, neck pain, or chest pain. Patient notes that she has had CT scans, MRIs, and US with no diagnosis for the abdominal pain. PCP: Meera Kessler Past Medical History Reviewed: Historical Data, Nursing Documentation, Vital Signs Vital Signs: Last Vital Signs Temp 98 F 01/02/17 22:02 Pulse 82 01/02/17 22:02 Resp 18 01/02/17 22:02 BP 140/76 01/02/17 22:02 Pulse Ox 100 01/02/17 22:02 - Medical History PMH: Anxiety, Depression, Gastritis, GERD, Osteoporosis, Pancreatitis Denies: Diabetes, Hepatitis, HIV, HTN, Chronic Kidney Disease, Seizures, Sexually Transmitted Disease - Surgical History Surgical History: Appendectomy, Cholecystectomy, - Family History Family History: States: No Known Family Hx - Home Medications Home Medications: Ambulatory Orders Medication Instructions Recorded Rabeprazole Sodium [Aciphex] 1 tab PO QAM 10/21/16 Sucralfate [Carafate Oral Susp] 1 gm PO DAILY 10/21/16 Famotidine [Pepcid] 20 mg PO DAILY #14 tab 01/03/17 - Allergies Allergies/Adverse Reactions: Allergies Allergy/AdvReac Type Severity Reaction Status Date / Time tetracycline Allergy Mild RASH Verified 10/27/16 17:12 iodine Allergy ANAPHYLAXIS Verified 10/27/16 17:12 morphine Allergy ANAPHYLAXIS Verified 10/27/16 17:12 Penicillins Allergy ANAPHYLAXIS Verified 10/27/16 17:12 Tetracyclines Allergy RASH Verified 10/27/16 17:12 Review of Systems ROS Statement: Except As Marked, All Systems Reviewed And Found Negative Constitutional: Negative for: Fever Eyes: Positive for: Redness (resolved). Negative for: Other ((-) photosensitivity) Cardiovascular: Negative for: Chest Pain Gastrointestinal: Positive for: Abdominal Pain (chronic epigastric). Negative for: Nausea, Vomiting Musculoskeletal: Negative for: Neck Pain Neurological: Positive for: Headache Physical Exam - Reviewed Nursing Documentation Reviewed: Yes Vital Signs Reviewed: Yes - Physical Exam Appears: Positive for: Non-toxic, No Acute Distress. Negative for: Uncomfortable Skin: Positive for: Normal Color, Warm, Dry ENT: Positive for: Normal ENT Inspection Neck: Positive for: Normal, Painless ROM, Supple Cardiovascular/Chest: Positive for: Regular Rate, Rhythm. Negative for: Murmur Respiratory: Positive for: Normal Breath Sounds. Negative for: Respiratory Distress Gastrointestinal/Abdominal: Positive for: Soft, Tenderness (mild epigastric tenderness), Other (scar on abdomen). Negative for: Distended Extremity: Positive for: Normal ROM. Negative for: Deformity Neurologic/Psych: Positive for: Alert, Oriented. Negative for: Motor/Sensory Deficits - Laboratory Results Result Diagrams: 01/03/17 00:54 01/03/17 00:54 - ECG ECG: Positive for: Interpreted By Me, Viewed By Me ECG Rhythm: Positive for: Normal QRS, Normal ST Segment, Sinus Rhythm. Negative for: ST/T Changes Rate: 75 O2 Sat by Pulse Oximetry: 100 (RA) Pulse Ox Interpretation: Normal Medical Decision Making Medical Decision Makin Initial impression: headache and chronic epigastric pain Initial plan: * CT HEAD * EKG * Labs * Trop I * NS IV * Reglan 10mg IVP * Toradol 15mg IVP * Re-eval 0104 FINDINGS: Brain: Unremarkable. No hemorrhage. No significant white matter disease. No edema. Ventricles: Unremarkable. No ventriculomegaly. Bones/joints: Unremarkable. No acute fracture. Soft tissues: Unremarkable. Sinuses: Unremarkable as visualized. No acute sinusitis. Mastoid air cells: Unremarkable as visualized. No mastoid effusion. IMPRESSION: No evidence of an acute intracranial abnormality. Scribe Attestation: Documented by Seema Roman acting as a scribe for Tuan Thomas MD. Scribe Attestation: All medical record entries made by the Scribe were at my direction and personally dictated by me. I have reviewed the chart and agree that the record accurately reflects my personal performance of the history, physical exam, medical decision making, and the department course for this patient. I have also personally directed, reviewed, and agree with the discharge instructions and disposition. Disposition - Clinical Impression Clinical Impression: Headache, Gastritis - Patient ED Disposition Is Patient to be Admitted: No Doctor Will See Patient In The: Office Counseled Patient/Family Regarding: Studies Performed, Diagnosis, Need For Followup - Disposition Referrals: Stefano Soto [Other] Disposition: Routine/Home Disposition Time: 02:07 Condition: GOOD Additional Instructions: Take your medications as instructed. Follow up with your PCP in 2-3 days. Prescriptions: Famotidine [Pepcid] 20 mg PO DAILY #14 tab Instructions: General Headache (ED), Gastritis (ED) Print Language: [place]ET[place]ESE
--- NOTE | 2017-01-03 01:04 | CT ---
EXAM: CT Head Without Intravenous Contrast CLINICAL HISTORY: 56 years old, female; Pain; Headache; Tension TECHNIQUE: Axial computed tomography images of the head/brain without intravenous contrast. All CT scans at this facility use one or more dose reduction techniques, viz.: automated exposure control; ma/kV adjustment per patient size (including targeted exams where dose is matched to indication; i.e. head); or iterative reconstruction technique. Coronal and sagittal reformatted images were created and reviewed. COMPARISON: CT - HEAD W/O CONTRAST 2016-03-28 00:20 FINDINGS: Brain: Unremarkable. No hemorrhage. No significant white matter disease. No edema. Ventricles: Unremarkable. No ventriculomegaly. Bones/joints: Unremarkable. No acute fracture. Soft tissues: Unremarkable. Sinuses: Unremarkable as visualized. No acute sinusitis. Mastoid air cells: Unremarkable as visualized. No mastoid effusion. IMPRESSION: No evidence of an acute intracranial abnormality.
[2017-01-03 01:06] LABS: BASO # 0.1 K/uL (0.0-0.2); BASO % 0.7 % (0.0-2.0); EOS # 0.2 K/uL (0.0-0.7); EOS % 2.3 % (0.0-4.0); LYMPH # 2.9 K/uL (1.0-4.3); LYMPH % 41.1 % (20.0-40.0); MEAN CELL VOLUME 94.2 fl (81.0-99.0); MEAN CORPUSCULAR HEMOGLOBIN 30.5 pg (27.0-31.0); MEAN CORPUSCULAR HGB CONC 32.4 g/dL (33.0-37.0); MEAN PLATELET VOLUME 8.4 fl (7.2-11.7); MONO # 0.5 K/uL (0.0-0.8); MONO % 7.5 % (0.0-10.0); NEUT # 3.4 K/uL (1.8-7.0); NEUT % 48.4 % (50.0-75.0); NRBC % 0.2 % (0.0-0.0); RED CELL DISTRIBUTION WIDTH 13.5 % (11.5-14.5)
[2017-01-03 01:09] LABS: BLOOD UREA NITROGEN 8 mg/dl (7-17); CALCIUM 10.2 mg/dL (8.4-10.2); CARBON DIOXIDE 25 mmol/L (22-30); CHLORIDE 103 mmol/L (98-107); GFR AFRICAN-AMERICAN > 60; GLUCOSE,RANDOM 93 mg/dL (65-105); POTASSIUM 4.3 MMOL/L (3.6-5.0); SODIUM 137 mmol/l (132-148)
[2017-01-03 01:30] VITALS: PULSE 75
--- NOTE | 2017-01-03 07:28 | CARD ---
APPROVED REPORT EKG Measurement Heart [id number] <Conclusion> Normal sinus rhythm Normal ECG
== END 2017-01-03 02:25 | disposition home or self-care (01) ==
LOC: H.ER 21:50
DX: R51 Headache (principal); K29.70 Gastritis, unspecified, without bleeding; F32.9 Major depressive disorder, single episode, unspecified; F41.9 Anxiety disorder, unspecified; Z88.0 Allergy status to penicillin
CPT/HCPCS: 70450; 80048; 84484; 85025; 85651; 93005; 96361; 96374; 96375; 99283; J1885; J2765; J7040

== ENCOUNTER 2017-03-06 21:11 | Emergency (ER) | payer MEDICAID ==
[2017-03-06 21:11] VITALS: BMI 23.4
[2017-03-06 22:15] VITALS: BP 139/86; PULSE 109; RESP 18; TEMP 97.8; O2SAT 100
[2017-03-06] MEDS ORDERED: Alum-Mag Hydrox-Simethicone Susp (30 mL) PO ONE (22:30)
--- NOTE | 2017-03-06 22:30 | ED PDOC ---
HPI: General Adult Time Seen by Provider: 03/06/17 22:28 Chief Complaint (Nursing): Cough, Cold, Congestion Chief Complaint (Provider): COUGH History Per: Patient (56 Y/O FEMALE H/O CHRONIC PANCREATITIS/GASTRITIS HERE WITH ABDOMINAL PAIN/BILE IN MOUTH AFTER STARTING BIAXIN YESTERDAY FOR BRONCHITIS. PATIENT STATES SHE HAS HAD PRODUCTIVE COUGH WITH YELLOW TINGED SPUTUM AND WAS SEEN BY PULMONARY YESTERDAY WITH BIAXIN. NOTES ABDOMINAL PAIN WITH INGESTION OF BIAXIN. NO FEVERS/CHILLS.) Past Medical History Reviewed: Historical Data, Nursing Documentation, Vital Signs Vital Signs: Last Vital Signs Temp 97.8 F 03/06/17 22:12 Pulse 109 H 03/06/17 22:12 Resp 18 03/06/17 22:12 BP 139/86 03/06/17 22:12 Pulse Ox 100 03/06/17 22:30 - Medical History PMH: Anxiety, Depression, Gastritis, GERD, Osteoporosis, Pancreatitis Denies: Diabetes, Hepatitis, HIV, HTN, Chronic Kidney Disease, Seizures, Sexually Transmitted Disease - Surgical History Surgical History: Appendectomy, Cholecystectomy, - Family History Family History: States: Unknown Family Hx - Home Medications Home Medications: Ambulatory Orders Medication Instructions Recorded Rabeprazole Sodium [Aciphex] 1 tab PO QAM 10/21/16 Sucralfate [Carafate Oral Susp] 1 gm PO DAILY 10/21/16 Famotidine [Pepcid] 20 mg PO DAILY #14 tab 01/03/17 Azithromycin [Zithromax Tri-Doe] 500 mg PO DAILY #3 tablet 03/06/17 Lansoprazole [Prevacid] 30 mg PO DAILY #7 capsule. 03/06/17 Promethazine/Codeine 5 ml PO Q12 PRN #50 ml 03/06/17 [Codeine/Promethazine 10 MG/5 Ml-6.25 MG/5 Ml] - Allergies Allergies/Adverse Reactions: Allergies Allergy/AdvReac Type Severity Reaction Status Date / Time tetracycline Allergy Mild RASH Verified 10/27/16 17:12 iodine Allergy ANAPHYLAXIS Verified 10/27/16 17:12 morphine Allergy ANAPHYLAXIS Verified 10/27/16 17:12 Penicillins Allergy ANAPHYLAXIS Verified 10/27/16 17:12 Tetracyclines Allergy RASH Verified 10/27/16 17:12 Review of Systems ROS Statement: Except As Marked, All Systems Reviewed And Found Negative Respiratory: Positive for: Cough Physical Exam - Reviewed Nursing Documentation Reviewed: Yes Vital Signs Reviewed: Yes - Physical Exam Appears: Positive for: Well, Non-toxic, No Acute Distress Head Exam: Positive for: ATRAUMATIC, NORMAL INSPECTION, NORMOCEPHALIC Skin: Positive for: Normal Color, Warm, DRY Eye Exam: Positive for: EOMI, Normal appearance, PERRL ENT: Positive for: Normal ENT Inspection Neck: Positive for: Normal, Painless ROM Cardiovascular/Chest: Positive for: Regular Rate, Rhythm Respiratory: Positive for: CNT, Normal Breath Sounds Gastrointestinal/Abdominal: Positive for: Normal Exam, Bowel Sounds, Soft Back: Positive for: Normal Inspection Extremity: Positive for: Normal ROM Neurologic/Psych: Positive for: Alert, Oriented - ECG O2 Sat by Pulse Oximetry: 100 - Progress ED Course And Treament: MAALOX 30 ML PO X 1 DOSE CXR: NO ACUTE INFILTRATE Disposition - Clinical Impression Clinical Impression: Cough, Gastritis - Patient ED Disposition Is Patient to be Admitted: No - Disposition Disposition: Routine/Home Disposition Time: 23:16 Condition: FAIR Prescriptions: Azithromycin [Zithromax Tri-Doe] 500 mg PO DAILY #3 tablet Lansoprazole [Prevacid] 30 mg PO DAILY #7 capsule. Promethazine/Codeine [Codeine/Promethazine 10 MG/5 Ml-6.25 MG/5 Ml] 5 ml PO Q12 PRN #50 ml PRN Reason: Cough Instructions: Acute Bronchitis (ED), Gastritis (ED) Forms: [facility] (Beninese), [facility] ED School/Work Excuse
[2017-03-06] MEDS ORDERED: Alum-Mag Hydrox-Simethicone Susp (30 mL) ONE (22:42)
--- NOTE | 2017-03-07 10:47 | RAD ---
HISTORY: COUG COMPARISON: Chest radiograph dated 10/27/2016. TECHNIQUE: Chest PA and lateral FINDINGS: LUNGS: No active pulmonary disease. PLEURA: No significant pleural effusion identified. No pneumothorax apparent. CARDIOVASCULAR: Atherosclerotic aortic calcifications. Cardiomediastinal silhouette within normal limits. OSSEOUS STRUCTURES: No significant abnormalities. VISUALIZED UPPER ABDOMEN: Normal. OTHER FINDINGS: None. IMPRESSION: No active disease.
== END 2017-03-06 23:47 | disposition home or self-care (01) ==
LOC: H.ER 21:11
DX: R05 Cough (principal); K29.70 Gastritis, unspecified, without bleeding; F32.9 Major depressive disorder, single episode, unspecified; F41.9 Anxiety disorder, unspecified; Z88.0 Allergy status to penicillin; K86.1 Other chronic pancreatitis; J40 Bronchitis, not specified as acute or chronic; K21.9 Gastro-esophageal reflux disease without esophagitis; M81.0 Age-related osteoporosis without current pathological fracture

== ENCOUNTER 2017-04-15 16:23 | Emergency (ER) | payer MEDICAID ==
[2017-04-15 16:23] VITALS: BMI 23.4
[2017-04-15 16:34] VITALS: RESP 16; TEMP 97.6; O2SAT 99
[2017-04-15 18:42] LABS: BASO % 0.5 % (0.0-2.0); EOS # 0.1 K/uL (0.0-0.7); EOS % 1.8 % (0.0-4.0); HEMOGLOBIN 12.2 g/dL (12.0-16.0); LYMPH # 1.8 K/uL (1.0-4.3); MEAN CELL VOLUME 94.6 fl (81.0-99.0); MEAN CORPUSCULAR HEMOGLOBIN 30.8 pg (27.0-31.0); MEAN CORPUSCULAR HGB CONC 32.6 g/dL (33.0-37.0); MEAN PLATELET VOLUME 8.4 fl (7.2-11.7); MONO # 0.3 K/uL (0.0-0.8); MONO % 5.9 % (0.0-10.0); NEUT # 3.5 K/uL (1.8-7.0); NEUT % 60.8 % (50.0-75.0); RBC 3.96 Mil/uL (3.80-5.20); RED CELL DISTRIBUTION WIDTH 13.2 % (11.5-14.5); WHITE BLOOD COUNT 5.7 K/uL (4.8-10.8)
--- NOTE | 2017-04-15 18:46 | ED PDOC ---
HPI: Chest Pain Time Seen by Provider: 04/15/17 17:21 Chief Complaint (Nursing): Chest Pain Chief Complaint (Provider): Chest Pain History Per: Patient History/Exam Limitations: no limitations Onset/Duration Of Symptoms: Hrs (x 4) Current Symptoms Are (Timing): Still Present Additional Complaint(s): Rama is a 56 y/o female with a history of reflux who presents to the ED complaining of left sided chest pain with radiation to arm for the past 4 hours. Patient is mostly concerned about reflux. She had a similar pain last year and came here, had an overnight stay and discharge with no specific diagnosis. Patient has had varying symptoms of reflux included occasional right sided pain and shortness of breath. She has also had workup with pasting inspector and there is some concern about gallbladder pathology. She is taking pepcid daily and has not taken anything for pain today. PMD: Meera Agarwal Past Medical History Reviewed: Historical Data, Nursing Documentation, Vital Signs Vital Signs: Last Vital Signs Temp 97.6 F 04/15/17 16:33 Pulse 79 04/15/17 22:51 Resp 16 04/15/17 22:11 BP 129/79 04/15/17 22:11 Pulse Ox 99 04/15/17 22:51 - Medical History PMH: Anxiety, Depression, Gastritis, GERD, Osteoporosis, Pancreatitis Denies: Diabetes, Hepatitis, HIV, HTN, Chronic Kidney Disease, Seizures, Sexually Transmitted Disease - Surgical History Surgical History: Appendectomy, Cholecystectomy, - Family History Family History: States: Unknown Family Hx - Social History Current smoker - smoking cessation education provided: No Alcohol: None - Home Medications Home Medications: Ambulatory Orders Medication Instructions Recorded Rabeprazole Sodium [Aciphex] 1 tab PO QAM 10/21/16 Sucralfate [Carafate Oral Susp] 1 gm PO DAILY 10/21/16 Famotidine [Pepcid] 20 mg PO DAILY #14 tab 01/03/17 Azithromycin [Zithromax Tri-Doe] 500 mg PO DAILY #3 tablet 03/06/17 Lansoprazole [Prevacid] 30 mg PO DAILY #7 capsule. 03/06/17 Promethazine/Codeine 5 ml PO Q12 PRN #50 ml 03/06/17 [Codeine/Promethazine 10 MG/5 Ml-6.25 MG/5 Ml] Dicyclomine [Bentyl] 20 mg PO BID PRN #30 tab 04/15/17 Omeprazole Magnesium [Prilosec Otc] 20 mg PO DAILY #30 tcp 04/15/17 - Allergies Allergies/Adverse Reactions: Allergies Allergy/AdvReac Type Severity Reaction Status Date / Time tetracycline Allergy Mild RASH Verified 10/27/16 17:12 iodine Allergy ANAPHYLAXIS Verified 10/27/16 17:12 morphine Allergy ANAPHYLAXIS Verified 10/27/16 17:12 Penicillins Allergy ANAPHYLAXIS Verified 10/27/16 17:12 Tetracyclines Allergy RASH Verified 10/27/16 17:12 Review of Systems ROS Statement: Except As Marked, All Systems Reviewed And Found Negative Cardiovascular: Positive for: Chest Pain (left sided with radiation to arm). Negative for: Edema (leg) Respiratory: Negative for: Shortness of Breath Gastrointestinal: Positive for: Nausea, Other (reflux) Physical Exam - Reviewed Nursing Documentation Reviewed: Yes Vital Signs Reviewed: Yes - Physical Exam Appears: Positive for: Non-toxic, In Acute Distress (mild painful) Head Exam: Positive for: ATRAUMATIC, NORMOCEPHALIC Skin: Positive for: Warm, Dry Eye Exam: Positive for: EOMI, PERRL ENT: Positive for: Normal ENT Inspection. Negative for: Tonsillar Exudate Neck: Positive for: Painless ROM, Supple Cardiovascular/Chest: Positive for: Regular Rate, Rhythm, Chest Non Tender. Negative for: Murmur Respiratory: Positive for: Normal Breath Sounds. Negative for: Wheezing Gastrointestinal/Abdominal: Positive for: Bowel Sounds, Soft, Tenderness ( epigastric). Negative for: Mass, Distended, Guarding, Rebound Back: Positive for: Normal Inspection. Negative for: Decreased ROM Extremity: Positive for: Normal ROM. Negative for: Deformity Lymphatic: Negative for: Adenopathy Neurologic/Psych: Positive for: Alert. Negative for: Motor/Sensory Deficits - Laboratory Results Result Diagrams: 04/15/17 18:30 04/15/17 18:11 - ECG ECG Rhythm: Positive for: Normal QRS, Normal ST Segment, Sinus Rhythm Rate: 79 (bpm) O2 Sat by Pulse Oximetry: 99 (RA) Pulse Ox Interpretation: Normal Medical Decision Making Medical Decision Making: Time: 17:47 Initial Impression: Chest Pain, very low likelihood of acute coronary syndrome Differentials include gastritis, reflux, costochondritis, dispepsia, pancreatitis Initial Plan: --Blood Type and Screen --EKG --Amylase --CMP --LDH --Lipase --Magnesium --Phosphorous --Troponin I --Urine --Urine Dip --CBC --PTT --Prothrombin Time --Chest XR --Pepcid Labs unremarkable Pt feels better s/p IV pepcid and eager to go home. Requesting copies of her results. Stable for DC with f/u GI. Scribe Attestation: Documented by Dudley Shea, acting as a scribe for Celi Mcgrath MD Provider Scribe Attestation: All medical record entries made by the Scribe were at my direction and personally dictated by me. I have reviewed the chart and agree that the record accurately reflects my personal performance of the history, physical exam, medical decision making, and the department course for this patient. I have also personally directed, reviewed, and agree with the discharge instructions and disposition. Disposition - Clinical Impression Clinical Impression: Gastritis, Atypical chest pain - Disposition Referrals: Malvin Goldman MD [Staff Provider] - (CALL OFFICE TOMORROW TO SETUP FOLLOW UP APPOINTMENT THIS WEEK) Condition: IMPROVED Prescriptions: Dicyclomine [Bentyl] 20 mg PO BID PRN #30 tab PRN Reason: abdominal pain Omeprazole Magnesium [Prilosec Otc] 20 mg PO DAILY #30 tcp Instructions: Chest Pain (ED), Gastroesophageal Reflux Disease (ED) Forms: [facility] ([place]) Print Language: SLOVAK
[2017-04-15 18:49] LABS: PARTIAL THROMBOPLASTIN TIME 31.7 Seconds (25.6-37.1); PROTHROMBIN TIME 11.4 Seconds (9.8-13.1)
[2017-04-15 18:51] VITALS: PULSE 79
[2017-04-15 21:17] LABS: SQUAMOUS EPITHIAL 1 /hpf (0-5); URINE BILIRUBIN NEGATIVE (NEGATIVE); URINE BLOOD NEGATIVE (NEGATIVE); URINE CLARITY CLEAR (Clear); URINE COLOR STRAW (YELLOW); URINE GLUCOSE (UA) NEG (Normal); URINE LEUKOCYTE ESTERASE NEG Leu/uL (Negative); URINE NITRATE NEGATIVE (NEGATIVE); URINE PROTEIN NEGATIVE (NEGATIVE); URINE UROBILINOGEN 0.2-1.0 mg/dL (0.2-1.0)
[2017-04-15 22:02] LABS: ALBUMIN 3.8 g/dL (3.5-5.0); ALT/SGPT 21 U/L (9-52); AMYLASE 142 U/L (30-110); AST/SGOT 24 U/L (14-36); BLOOD UREA NITROGEN 11 mg/dl (7-17); CALCIUM 9.7 mg/dL (8.4-10.2); GFR AFRICAN-AMERICAN > 60; GFR NON-AFRICAN AMERICAN > 60; LIPASE 210 U/L (23-300); MAGNESIUM 2.3 MG/DL (1.6-2.3)
[2017-04-15 22:12] VITALS: BP 129/79
--- NOTE | 2017-04-16 07:54 | CARD ---
APPROVED REPORT EKG Measurement Heart [id number] <Conclusion> Normal sinus rhythm Possible Left atrial enlargement Borderline ECG
--- NOTE | 2017-04-16 09:29 | RAD ---
HISTORY: Chest pain. COMPARISON: 03/06/2017. TECHNIQUE: Chest PA and lateral FINDINGS: LUNGS: No active pulmonary disease. PLEURA: No significant pleural effusion identified. No pneumothorax apparent. CARDIOVASCULAR: No radiographic findings to suggest acute or significant cardiovascular disease. OSSEOUS STRUCTURES: No significant abnormalities. VISUALIZED UPPER ABDOMEN: Normal. OTHER FINDINGS: None. IMPRESSION: No active disease. No significant interval change compared to the prior examination(s). Concordant results with the preliminary interpretation rendered by the emergency department physician procedure.
== END 2017-04-15 23:09 | disposition home or self-care (01) ==
LOC: H.ER 16:23
DX: K29.70 Gastritis, unspecified, without bleeding (principal); R07.9 Chest pain, unspecified; Z86.59 Personal history of other mental and behavioral disorders; K21.9 Gastro-esophageal reflux disease without esophagitis; K85.90 Acute pancreatitis without necrosis or infection, unspecified; Z88.0 Allergy status to penicillin

== ENCOUNTER 2017-06-04 15:45 | Emergency (ER) | payer MEDICAID ==
[2017-06-04 15:45] VITALS: BMI 23.4
[2017-06-04 16:08] VITALS: TEMP 98.1
[2017-06-04] MEDS ORDERED: Sodium Chloride 0.9% 1,000 ML IV STA (16:32)
--- NOTE | 2017-06-04 16:44 | ED PDOC ---
HPI: Abdomen Time Seen by Provider: 06/04/17 16:13 Chief Complaint (Nursing): Abdominal Pain Chief Complaint (Provider): Abdominal pain History Per: Patient History/Exam Limitations: no limitations Onset/Duration Of Symptoms: Days Outside of [place] travel?: No Current Symptoms Are (Timing): Still Present Location Of Pain/Discomfort: RUQ, Other (right flank) Associated Symptoms: Nausea, Urinary Symptoms. denies: Vomiting Additional History Per: Patient Additional Complaint(s): 56yo female with chronic pancreatitis, presents to ED with complaints of right upper quadrant pain and right flank pain which has been ongoing for the past 3 days. She states pain is constant but mild; states she was concerned the symptoms might be related to her pancreatitis. Patient states she has been compliant with her diet and medication as well. She reports associated nausea, mild diarrhea, urinary frequency and radiation of pain to her right leg. She denies any vomiting. Patient states she has had multiple workups for her pancreatitis in other facilities as well. She has no other medical complaints. PCP: Dr. Kessler GI: Dr. Jacome Past Medical History Reviewed: Historical Data, Nursing Documentation, Vital Signs Vital Signs: Last Vital Signs Temp 98.1 F 06/04/17 20:10 Pulse 84 06/04/17 20:10 Resp 18 06/04/17 20:10 BP 107/71 06/04/17 20:10 Pulse Ox 97 06/05/17 00:22 - Medical History PMH: Anxiety, Depression, Gastritis, GERD, Osteoporosis, Pancreatitis Denies: Diabetes, Hepatitis, HIV, HTN, Chronic Kidney Disease, Seizures, Sexually Transmitted Disease - Surgical History Surgical History: Appendectomy, Cholecystectomy, - Family History Family History: States: Unknown Family Hx - Home Medications Home Medications: Ambulatory Orders Medication Instructions Recorded Rabeprazole Sodium [Aciphex] 1 tab PO QAM 10/21/16 Sucralfate [Carafate Oral Susp] 1 gm PO DAILY 10/21/16 Famotidine [Pepcid] 20 mg PO DAILY #14 tab 01/03/17 Azithromycin [Zithromax Tri-Doe] 500 mg PO DAILY #3 tablet 03/06/17 Lansoprazole [Prevacid] 30 mg PO DAILY #7 capsule. 03/06/17 Promethazine/Codeine 5 ml PO Q12 PRN #50 ml 03/06/17 [Codeine/Promethazine 10 MG/5 Ml-6.25 MG/5 Ml] Dicyclomine [Bentyl] 20 mg PO BID PRN #30 tab 04/15/17 Omeprazole Magnesium [Prilosec Otc] 20 mg PO DAILY #30 tcp 04/15/17 Dicyclomine [Bentyl] 20 mg PO Q12 PRN #20 tab 06/04/17 Nitrofurantoin Macrocrystals 100 mg PO BID #14 cap 06/04/17 [Macrobid] - Allergies Allergies/Adverse Reactions: Allergies Allergy/AdvReac Type Severity Reaction Status Date / Time tetracycline Allergy Mild RASH Verified 06/04/17 16:05 iodine Allergy ANAPHYLAXIS Verified 06/04/17 16:05 morphine Allergy ANAPHYLAXIS Verified 06/04/17 16:05 Penicillins Allergy ANAPHYLAXIS Verified 06/04/17 16:05 Tetracyclines Allergy RASH Verified 06/04/17 16:05 Review of Systems ROS Statement: Except As Marked, All Systems Reviewed And Found Negative Constitutional: Negative for: Fever, Chills Gastrointestinal: Positive for: Nausea, Abdominal Pain, Diarrhea. Negative for : Vomiting Genitourinary Female: Positive for: Frequency Physical Exam - Reviewed Nursing Documentation Reviewed: Yes Vital Signs Reviewed: Yes - Physical Exam Appears: Positive for: Non-toxic, No Acute Distress Head Exam: Positive for: ATRAUMATIC, NORMAL INSPECTION, NORMOCEPHALIC Skin: Positive for: Normal Color Eye Exam: Positive for: Normal appearance Neck: Positive for: Supple Cardiovascular/Chest: Positive for: Regular Rate, Rhythm Respiratory: Positive for: Normal Breath Sounds. Negative for: Wheezing Gastrointestinal/Abdominal: Positive for: Soft, Tenderness (right upper quadrant and epigastric tenderness) Back: Positive for: Normal Inspection. Negative for: L CVA Tenderness, R CVA Tenderness Extremity: Positive for: Normal ROM (normal ROM of bilateral lower extremities) . Negative for: Tenderness Neurologic/Psych: Positive for: Alert, Oriented. Negative for: Motor/Sensory Deficits - Laboratory Results Result Diagrams: 06/04/17 17:12 06/04/17 17:12 - ECG O2 Sat by Pulse Oximetry: 97 (RA) Pulse Ox Interpretation: Normal Medical Decision Making Medical Decision Making: Impression: Abdominal pain Differential: Acute pancreatitis, gastritis, gastroenteritis, UTI, biliary disease, kidney stone Plan: -- CT Abdomen w/o contrast -- Labs -- Pepcid 20 mg PO -- Toradol 15 mg IVP -- IV Fluids -- Zofran 4mg PO Time: 1700 Patient signed out to Dr. Clark pending labs, CT studies and reevaluation. Scribe Attestation: Documented by Jelly Jordan, acting as a scribe for Tuan Thomas MD. Provider Scribe Attestation: All medical record entries made by the Scribe were at my direction and personally dictated by me. I have reviewed the chart and agree that the record accurately reflects my personal performance of the history, physical exam, medical decision making, and the department course for this patient. I have also personally directed, reviewed, and agree with the discharge instructions and disposition. Disposition - Clinical Impression Clinical Impression: Abdominal pain, UTI (urinary tract infection) - Patient ED Disposition Is Patient to be Admitted: Transfer of Care - Disposition Disposition: Transfer of Care Disposition Time: 17:00 Condition: STABLE Prescriptions: Dicyclomine [Bentyl] 20 mg PO Q12 PRN #20 tab PRN Reason: abdominal pain Nitrofurantoin Macrocrystals [Macrobid] 100 mg PO BID #14 cap Instructions: Urinary Tract Infections in Adults, Acute Abdomen (Belly Pain) Forms: [facility] (Maltese) Print Language: [place] Patient Signed Over To: Arturo Clark III Handoff Comments: Pending labs, ct, reassess
--- NOTE | 2017-06-04 17:00 | ED PDOC ---
- ECG O2 Sat by Pulse Oximetry: 97 (RA) Medical Decision Making Medical Decision Making: recd 5pm pending workup for abd pain labs and CT pending Udip showed leuks Disposition - Disposition Condition: STABLE Forms: [facility] (Swiss)
[2017-06-04 17:23] LABS: BASO # 0.1 K/uL (0.0-0.2); BASO % 0.9 % (0.0-2.0); EOS # 0.1 K/uL (0.0-0.7); EOS % 1.7 % (0.0-4.0); LYMPH % 31.1 % (20.0-40.0); MEAN CELL VOLUME 95.3 fl (81.0-99.0); MEAN CORPUSCULAR HEMOGLOBIN 31.4 pg (27.0-31.0); MEAN CORPUSCULAR HGB CONC 32.9 g/dL (33.0-37.0); MEAN PLATELET VOLUME 9.2 fl (7.2-11.7); MONO # 0.4 K/uL (0.0-0.8); MONO % 6.4 % (0.0-10.0); NEUT # 3.9 K/uL (1.8-7.0); NEUT % 59.9 % (50.0-75.0); RBC 4.14 Mil/uL (3.80-5.20); RED CELL DISTRIBUTION WIDTH 13.4 % (11.5-14.5); WHITE BLOOD COUNT 6.4 K/uL (4.8-10.8)
[2017-06-04 17:29] LABS: CALCIUM 9.7 mg/dL (8.4-10.2); GFR AFRICAN-AMERICAN > 60; GFR NON-AFRICAN AMERICAN > 60; LIPASE 172 U/L (23-300)
[2017-06-04 17:35] LABS: ALB/GLOB RATIO 1.1 (1.0-2.1); ALBUMIN 4.3 g/dL (3.5-5.0); ALT/SGPT 30 U/L (9-52); AST/SGOT 35 U/L (14-36); BLOOD UREA NITROGEN 12 mg/dl (7-17)
[2017-06-04 17:37] LABS: SQUAMOUS EPITHIAL 2 /hpf (0-5); URINE BACTERIA RARE (<OCC); URINE BILIRUBIN NEGATIVE (NEGATIVE); URINE BLOOD SMALL (NEGATIVE); URINE CLARITY CLOUDY (Clear); URINE COLOR YELLOW (YELLOW); URINE GLUCOSE (UA) NEG (Normal); URINE LEUKOCYTE ESTERASE SMALL Leu/uL (Negative); URINE PROTEIN NEGATIVE (NEGATIVE); URINE UROBILINOGEN 0.2-1.0 mg/dL (0.2-1.0)
--- NOTE | 2017-06-04 18:45 | CT ---
PROCEDURE: CT scan of the abdomen and pelvis dated 06/04/2017 HISTORY: Right upper quadrant pain COMPARISON: None. TECHNIQUE: Contiguous axial images of the abdomen and pelvis. Oral contrast was administered. No IV contrast given. Coronal and Sagittal reformats generated. Radiation dose: Total exam DLP = 469.28 correlation made with tech This CT exam was performed using one or more of the following dose reduction techniques: Automated exposure control, adjustment of the mA and/or kV according to patient size, and/or use of iterative reconstruction technique. FINDINGS: LOWER THORAX: Mild passive/dependent type atelectasis both posterior lower lung zones. No evidence of effusion or basilar pneumothorax. There is a tiny hiatal hernia with slight wall thickening of the distal esophagus likely due to protrusion of gastric mucosa. Possibility of esophagitis not excluded. LIVER: The liver exhibits normal size measuring approximately 12.6 cm in CC dimension. No obvious hepatic mass collection or calcification. GALLBLADDER AND BILE DUCTS: Gallbladder is not seen with any certainty ; clinical correlation with surgical history recommended. . PANCREAS: Visualized portions of the unenhanced pancreas appear grossly unremarkable without masses collections or calcifications. No significant pancreatic ductal dilatation. SPLEEN: Spleen exhibits normal size and attenuation pattern without mass or collection. Few punctate calcifications are present which could be vascular in origin however the small calcified granulomata not excluded. ADRENALS: There are no adrenal lesions. KIDNEYS AND URETERS: The kidneys demonstrate relatively symmetric size. . There appears to be a punctate calcific density midpole right kidney however no evidence of hydronephrosis. BLADDER: The urinary bladder is physiologically distended. No evidence of intraluminal urinary bladder calculi. REPRODUCTIVE: Uterus unremarkable. No APPENDIX: Appendix is not seen with complete certainty on this exam however no obvious inflammatory changes right lower quadrant of the abdomen. BOWEL: Evaluation of the bowel is limited due to the lack of oral contrast material. The stomach is relatively collapsed which in part is felt to account for thick-walled appearance. Gastritis or other intrinsic/invasive wall lesion cannot be excluded. Clinical correlation recommended. Visualized loops small bowel exhibit normal contour and caliber. No evidence of acute mechanical small bowel obstruction. There is a relatively large amount of stool seen within the cecum at ascending and to a lesser degree transverse colon suggesting mild fecal retention/ constipation. There are a few scattered right-sided colonic fat no are present however no radiographic evidence of acute diverticulitis. PERITONEUM: Unremarkable. No fluid collection. No free air. . Tiny fat containing umbilical hernia. LYMPH NODES: Unremarkable. No enlarged lymph nodes. VASCULATURE: Unremarkable. No aortic aneurysm. BONES: Re- demonstrated is minor chronic superior endplate deformity T12 segment. The remaining vertebral bodies otherwise exhibit normal stature. Vertebral bodies and facets normally aligned. OTHER FINDINGS: None. IMPRESSION: Gallbladder is not seen with any certainty and may have been resected however clinical correlation with surgical history recommended. The appendix is also not seen and correlation with surgical history also suggested. No inflammatory changes right lower quadrant of the abdomen. There are several right-sided colonic diverticulum though no radiographic evidence of acute diverticulitis. Findings suggest mild localized of fecal retention/constipation as described Punctate calcification midpole right kidney without evidence of hydronephrosis Few tiny at splenic calcifications may be vascular in origin however the possibility of small calcified granuloma not excluded. See above discussion for additional findings and details.
--- NOTE | 2017-06-04 19:54 | ED PDOC ---
- Laboratory Results Result Diagrams: 06/04/17 17:12 06/04/17 17:12 - ECG O2 Sat by Pulse Oximetry: 97 (RA) Pulse Ox Interpretation: Normal Medical Decision Making Medical Decision Making: Time: 19:00 Patient was signed out to me by Dr. Clark pending CT and reevaluation. Time: 19:40 PROCEDURE: CT scan of the abdomen and pelvis FINDINGS: LOWER THORAX: Mild passive/dependent type atelectasis both posterior lower lung zones. No evidence of effusion or basilar pneumothorax. There is a tiny hiatal hernia with slight wall thickening of the distal esophagus likely due to protrusion of gastric mucosa. Possibility of esophagitis not excluded. LIVER: The liver exhibits normal size measuring approximately 12.6 cm in CC dimension. No obvious hepatic mass collection or calcification. GALLBLADDER AND BILE DUCTS: Gallbladder is not seen with any certainty ; clinical correlation with surgical history recommended. . PANCREAS: Visualized portions of the unenhanced pancreas appear grossly unremarkable without masses collections or calcifications. No significant pancreatic ductal dilatation. SPLEEN: Spleen exhibits normal size and attenuation pattern without mass or collection. Few punctate calcifications are present which could be vascular in origin however the small calcified granulomata not excluded. ADRENALS: There are no adrenal lesions. KIDNEYS AND URETERS: The kidneys demonstrate relatively symmetric size. . There appears to be a punctate calcific density midpole right kidney however no evidence of hydronephrosis. BLADDER: The urinary bladder is physiologically distended. No evidence of intraluminal urinary bladder calculi. REPRODUCTIVE: Uterus unremarkable. No APPENDIX: Appendix is not seen with complete certainty on this exam however no obvious inflammatory changes right lower quadrant of the abdomen. BOWEL: Evaluation of the bowel is limited due to the lack of oral contrast material. The stomach is relatively collapsed which in part is felt to account for thick- walled appearance. Gastritis or other intrinsic/invasive wall lesion cannot be excluded. Clinical correlation recommended. Visualized loops small bowel exhibit normal contour and caliber. No evidence of acute mechanical small bowel obstruction. There is a relatively large amount of stool seen within the cecum at ascending and to a lesser degree transverse colon suggesting mild fecal retention/ constipation. There are a few scattered right-sided colonic fat no are present however no radiographic evidence of acute diverticulitis. PERITONEUM: Unremarkable. No fluid collection. No free air. . Tiny fat containing umbilical hernia. LYMPH NODES: Unremarkable. No enlarged lymph nodes. VASCULATURE: Unremarkable. No aortic aneurysm. BONES: Re- demonstrated is minor chronic superior endplate deformity T12 segment. The remaining vertebral bodies otherwise exhibit normal stature. Vertebral bodies and facets normally aligned. OTHER FINDINGS: None. IMPRESSION: Gallbladder is not seen with any certainty and may have been resected however clinical correlation with surgical history recommended. The appendix is also not seen and correlation with surgical history also suggested. No inflammatory changes right lower quadrant of the abdomen. There are several right-sided colonic diverticulum though no radiographic evidence of acute diverticulitis. Findings suggest mild localized of fecal retention/constipation as described Punctate calcification midpole right kidney without evidence of hydronephrosis Few tiny at splenic calcifications may be vascular in origin however the possibility of small calcified granuloma not excluded. See above discussion for additional findings and details. Time: 19:45 Patient feeling improved and will be discharged. Clinical Impression: Urinary tract infection and Abdominal pain Upon provider evaluation patient is medically stable, and requires no further treatment in the ED at this time. Patient will be discharged with Bentyl 20mg and Macrobid 100mg for urinary tract infections and acute abdomen. Counseling was provided and all questions were answered regarding diagnosis and need for follow up with PMD. There is agreement to discharge plan. Return if symptoms persist or worsen. Scribe Attestation: Documented by Eric Saravia, acting as a scribe for Jerry Dominguez MD Provider Scribe Attestation: All medical record entries made by the Scribe were at my direction and personally dictated by me. I have reviewed the chart and agree that the record accurately reflects my personal performance of the history, physical exam, medical decision making, and the department course for this patient. I have also personally directed, reviewed, and agree with the discharge instructions and disposition. Disposition - Clinical Impression Clinical Impression: Abdominal pain, UTI (urinary tract infection) - POA Present On Arrival: None - Disposition Disposition: Routine/Home Disposition Time: 19:45 Condition: STABLE Prescriptions: Dicyclomine [Bentyl] 20 mg PO Q12 PRN #20 tab PRN Reason: abdominal pain Nitrofurantoin Macrocrystals [Macrobid] 100 mg PO BID #14 cap Instructions: Urinary Tract Infections in Adults, Acute Abdomen (Belly Pain) Forms: [facility] (Setswana) Print Language: BERMUDIAN
[2017-06-04 20:14] VITALS: BP 107/71; PULSE 84; RESP 18
[2017-06-05 00:22] VITALS: O2SAT 97
--- NOTE | 2017-06-05 09:53 | CARD ---
APPROVED REPORT EKG Measurement Heart [id number] IN [id number] <Conclusion> Normal sinus rhythm Possible Left atrial enlargement Borderline ECG
== END 2017-06-04 20:10 | disposition home or self-care (01) ==
LOC: H.ER 15:45
DX: N39.0 Urinary tract infection, site not specified (principal); Z88.0 Allergy status to penicillin
CPT/HCPCS: 74176; 80053; 81003; 83690; 85025; 93005; 96374; 96375; 99284; J1885; J7040

== ENCOUNTER 2017-06-25 15:34 | Emergency (ER) | payer MEDICAID ==
[2017-06-25 15:34] VITALS: BMI 23.4
[2017-06-25 16:31] VITALS: RESP 18; O2SAT 100
[2017-06-25] MEDS ORDERED: Sodium Chloride 0.9% 1,000 ML IV STA (18:22)
[2017-06-25 18:40] LABS: SQUAMOUS EPITHIAL < 1 /hpf (0-5); URINE BACTERIA RARE (<OCC); URINE BILIRUBIN NEGATIVE (NEGATIVE); URINE BLOOD NEGATIVE (NEGATIVE); URINE CLARITY SLIGHTY-CLOUDY (Clear); URINE COLOR COLORLESS (YELLOW); URINE GLUCOSE (UA) NEG (Normal); URINE LEUKOCYTE ESTERASE NEG Leu/uL (Negative); URINE PROTEIN NEGATIVE (NEGATIVE); URINE UROBILINOGEN 0.2-1.0 mg/dL (0.2-1.0)
[2017-06-25 18:51] LABS: BASO % 0.4 % (0.0-2.0); EOS # 0.1 K/uL (0.0-0.7); EOS % 1.4 % (0.0-4.0); HEMOGLOBIN 13.7 g/dL (12.0-16.0); LYMPH # 2.3 K/uL (1.0-4.3); LYMPH % 38.8 % (20.0-40.0); MEAN CELL VOLUME 95.8 fl (81.0-99.0); MEAN CORPUSCULAR HEMOGLOBIN 31.5 pg (27.0-31.0); MEAN CORPUSCULAR HGB CONC 32.9 g/dL (33.0-37.0); MONO # 0.4 K/uL (0.0-0.8); MONO % 7.3 % (0.0-10.0); NEUT # 3.1 K/uL (1.8-7.0); NEUT % 52.1 % (50.0-75.0); NRBC % 0.2 % (0.0-0.0); RBC 4.36 Mil/uL (3.80-5.20); RED CELL DISTRIBUTION WIDTH 13.5 % (11.5-14.5); WHITE BLOOD COUNT 5.9 K/uL (4.8-10.8)
--- NOTE | 2017-06-25 18:54 | RAD ---
PROCEDURE: Radiographs of the chest and abdomen (obstructive series) HISTORY: Lower back pain, pelvic pain and chills COMPARISON: No prior. TECHNIQUE: AP radiograph of the chest, with upright and supine radiographs of the abdomen. FINDINGS: CHEST: Lungs: Clear. Cardiovascular: Normal size heart. No pulmonary vascular congestion. Pleura: No pleural fluid. No pneumothorax. Other findings: None. ABDOMEN AND PELVIS: Bowel: Constipation without fecal impaction or obstruction. Free air: None. Bones: Unremarkable. Other findings: None. IMPRESSION: Unremarkable radiographs of chest and abdomen. No evidence of mechanical bowel obstruction.
[2017-06-25 19:02] LABS: ALB/GLOB RATIO 1.1 (1.0-2.1); ALBUMIN 4.2 g/dL (3.5-5.0); ALT/SGPT 34 U/L (9-52); AST/SGOT 23 U/L (14-36); BLOOD UREA NITROGEN 9 mg/dl (7-17); CALCIUM 10.3 mg/dL (8.4-10.2); GFR AFRICAN-AMERICAN > 60; GFR NON-AFRICAN AMERICAN > 60; LIPASE 149 U/L (23-300)
--- NOTE | 2017-06-25 19:57 | ED PDOC ---
HPI: General Adult Time Seen by Provider: 06/25/17 17:29 Chief Complaint (Nursing): Female Genitourinary History Per: Patient Additional Complaint(s): Pt. states for the past 2 weeks she's had constant R sided lower back pain radiating into her R pelvic area. Also reports intermittent epigastric pain. Pt. states she is concerned it may be her pancreatitis. States she had similar symptoms last month and was treated in [facility] ED and had blood work and CT done which were normal. States she was dc'd from the ED and she f/u with Dr. Tay. Reports no testing was done by her PMD. Pt. states she feels very flatulent. Denies vomiting, diarrhea, melena, hematemesis, BRBPR, constipation, chest pain, SOB. Last BM was today and was normal. Past Medical History Reviewed: Historical Data, Nursing Documentation, Vital Signs Vital Signs: Last Vital Signs Temp 97.5 F L 06/25/17 23:34 Pulse 78 06/25/17 23:34 Resp 18 06/25/17 23:34 BP 112/68 06/25/17 23:34 Pulse Ox 100 06/25/17 23:34 - Medical History PMH: Anxiety, Depression, Gastritis, GERD, Osteoporosis, Pancreatitis Denies: Diabetes, Hepatitis, HIV, HTN, Chronic Kidney Disease, Seizures, Sexually Transmitted Disease - Surgical History Surgical History: Appendectomy, Cholecystectomy, - Family History Family History: States: No Known Family Hx - Home Medications Home Medications: Ambulatory Orders Medication Instructions Recorded Rabeprazole Sodium [Aciphex] 1 tab PO QAM 10/21/16 Sucralfate [Carafate Oral Susp] 1 gm PO DAILY 10/21/16 Famotidine [Pepcid] 20 mg PO DAILY #14 tab 01/03/17 Azithromycin [Zithromax Tri-Doe] 500 mg PO DAILY #3 tablet 03/06/17 Lansoprazole [Prevacid] 30 mg PO DAILY #7 capsule. 03/06/17 Promethazine/Codeine 5 ml PO Q12 PRN #50 ml 03/06/17 [Codeine/Promethazine 10 MG/5 Ml-6.25 MG/5 Ml] Dicyclomine [Bentyl] 20 mg PO BID PRN #30 tab 01/28/18 Omeprazole Magnesium [Prilosec Otc] 20 mg PO DAILY #30 tcp 04/15/17 Dicyclomine [Bentyl] 20 mg PO Q12 PRN #20 tab 06/04/17 Nitrofurantoin Macrocrystals 100 mg PO BID #14 cap 06/04/17 [Macrobid] Ibuprofen [Motrin Tab] 1 tab PO Q6 PRN #20 tab 06/25/17 Tamsulosin [Flomax] 0.4 mg PO DAILY #10 cap 06/25/17 - Allergies Allergies/Adverse Reactions: Allergies Allergy/AdvReac Type Severity Reaction Status Date / Time tetracycline Allergy Mild RASH Verified 06/04/17 16:05 iodine Allergy ANAPHYLAXIS Verified 06/04/17 16:05 morphine Allergy ANAPHYLAXIS Verified 06/04/17 16:05 Penicillins Allergy ANAPHYLAXIS Verified 06/04/17 16:05 Tetracyclines Allergy RASH Verified 06/04/17 16:05 Review of Systems ROS Statement: Except As Marked, All Systems Reviewed And Found Negative Gastrointestinal: Positive for: Abdominal Pain Physical Exam - Physical Exam Appears: Positive for: Well, Non-toxic, No Acute Distress Skin: Positive for: Normal Color, Warm. Negative for: Rash, Jaundice Eye Exam: Positive for: Normal appearance. Negative for: Scleral icterus (b/l) , Other Neck: Positive for: Normal, Painless ROM Cardiovascular/Chest: Positive for: Regular Rate, Rhythm Respiratory: Positive for: CNT, Normal Breath Sounds Gastrointestinal/Abdominal: Positive for: Normal Exam, Bowel Sounds, Soft, Other (large ventral old scar noted). Negative for: Tenderness - Laboratory Results Result Diagrams: 06/25/17 18:33 06/25/17 18:33 - ECG O2 Sat by Pulse Oximetry: 100 - Progress ED Course And Treament: Obstructive series, abd/pelvic US, labs, pepcid 20mg IV ordered. Disposition - Clinical Impression Clinical Impression: Hydroureter, right, Renal colic on right side - Patient ED Disposition Is Patient to be Admitted: Transfer of Care (Signed out to Abdiel CASTRO pending re -evaluation and US results) - Disposition Referrals: Roger Emery MD [Staff Provider] - Disposition Time: 20:00 Condition: IMPROVED Prescriptions: Ibuprofen [Motrin Tab] 1 tab PO Q6 PRN #20 tab PRN Reason: Pain, Moderate (4-7) Tamsulosin [Flomax] 0.4 mg PO DAILY #10 cap Instructions: Renal Colic Forms: [facility] (Danish), [facility] ED School/Work Excuse Print Language: TRISTANIAN
--- NOTE | 2017-06-25 22:08 | ED PDOC ---
- Laboratory Results Result Diagrams: 06/25/17 18:33 06/25/17 18:33 - ECG O2 Sat by Pulse Oximetry: 100 - Progress ED Course And Treament: EXAM: US Pelvis Complete, Transabdominal CLINICAL HISTORY: 56 years old, female; Pain; Pelvic pain; Additional info: R sided pelvic pain TECHNIQUE: Real-time transabdominal pelvic ultrasound (complete) with image documentation. COMPARISON: No relevant prior studies available. FINDINGS: Uterus/cervix: The uterus measures 7.1 x 4.8 x 2.0 cm. Endometrial stripe thickness is 4 mm. No myometrial mass. Right ovary: The right ovary was not visualized. Left ovary: There is a simple appearing cyst of the left ovary measuring a maximum of 1.6 cm. The left ovary measures 3.2 x 3.4 x 2.4 cm with normal Doppler flow. Normal blood flow. Free fluid: No free fluid. Bladder: Unremarkable as visualized. Wall is normal thickness for degree of distention. IMPRESSION: 1. The right ovary was not visualized. 2. There is a simple appearing cyst of the left ovary measuring a maximum of 1.6 cm. EXAM: US Abdomen Complete CLINICAL HISTORY: 56 years old, female; Pain; Abdominal pain; Epigastric; Additional info: Epigastric, rlq abd pain TECHNIQUE: Real-time ultrasound of the abdomen (complete) with image documentation. COMPARISON: No relevant prior studies available. FINDINGS: Liver: Unremarkable. No mass. No intrahepatic bile duct dilation. Gallbladder: There is absence of the gallbladder consistent with cholecystectomy. Common bile duct: Unremarkable as visualized. No stones. No dilation. Pancreas: Unremarkable as visualized. Kidneys: The proximal right ureter appears prominent consistent with mild proximal hydroureter but no visible right renal or proximal ureteral calculi. No left-sided hydronephrosis or visible calculi. Spleen: Unremarkable. No splenomegaly. Aorta: Unremarkable. No aneurysm. Inferior vena cava: Unremarkable. IMPRESSION: The proximal right ureter appears prominent consistent with mild proximal hydroureter but no visible right renal or proximal ureteral calculi. Patient with normal WBC, normal BUN/CRE, normal u/a. Patient educated on findings, and possibility of nonvisible stone on u/s; offered CT renal protocol but patient declines at this time as she just had one less than one month ago. Advised patient will treat with NSAIDs and flomax, and give name of urologist to follow up with. Return precautions given. Disposition - Clinical Impression Clinical Impression: Renal colic on right side, Hydroureter, right - POA Present On Arrival: None - Disposition Disposition: Routine/Home Disposition Time: 23:10 Condition: IMPROVED Instructions: Renal Colic Forms: [facility] (Sinhala) Print Language: LITHUANIAN
[2017-06-25 23:35] VITALS: BP 112/68; PULSE 78; TEMP 97.5
--- NOTE | 2017-06-26 10:52 | US ---
HISTORY: Low back pain, pelvic pain and chills. COMPARISON: 09/09/2016 pelvic ultrasound TECHNIQUE: Transabdominal only. Real-time technique with 2D, duplex and color Doppler FINDINGS: UTERUS: Measures 4.8 x 1.9 x 7.1 cm. Normal in size and appearance. No fibroid or other mass lesion seen. ENDOMETRIUM: Measures 4.2 mm in diameter. Unremarkable. CERVIX: No cervical abnormality identified. RIGHT OVARY: Not visualized. LEFT OVARY: Measures 2.4 x 3.2 cm. No solid mass. Normal flow. Simple cyst 1.6 x 1.1 cm FREE FLUID: No significant free fluid noted. OTHER FINDINGS: None. IMPRESSION: No significant or acute findings to account for/ related to the clinical presentation. Study no significant interval change compared to the prior study Limitations of the current examination: Nonvisualization right adnexa. Concordant results (preliminary interpretation) provided by [facility]. Procedure Completed: 21:21 Preliminary ([facility]) Report: Dictated and Authenticated: 21:31. Final Interpretation: 10:50. June 26, 2017
--- NOTE | 2017-06-26 10:54 | US ---
HISTORY: epigastric, RLQ abd pain COMPARISON: 09/09/2016 abdominal ultrasound TECHNIQUE: Sonographic evaluation of the abdomen. FINDINGS: LIVER: Measures 14.2 cm. Normal echogenicity of the liver parenchyma. No mass. No intrahepatic bile duct dilatation. GALLBLADDER: Status post cholecystectomy. No abnormality is seen in the gallbladder fossa. COMMON BILE DUCT: Measures 2.5 mm. No stones. No dilatation. PANCREAS: Unremarkable as visualized. No mass. No ductal dilatation. RIGHT KIDNEY: Measures 5.6 x 11.1cm. Normal echogenicity. No calculus, mass, or hydronephrosis. LEFT KIDNEY: Measures 4.1 x 9.8cm. Normal echogenicity. No calculus, mass, or hydronephrosis. SPLEEN: Normal in size and contour. No mass. AORTA: No aneurysmal dilatation. IVC: Unremarkable. OTHER FINDINGS: None. IMPRESSION: No acute findings related to/accounting for the clinical presentation. No significant interval change compared to the prior examination(s). Concordant results (preliminary interpretation) provided by [facility]. Procedure Completed: 21:44 Preliminary ([facility]) Report: Dictated and Authenticated: 22:33 Final Interpretation: 10:53.
== END 2017-06-25 23:41 | disposition home or self-care (01) ==
LOC: H.ER 15:34
DX: N13.4 Hydroureter (principal); K21.9 Gastro-esophageal reflux disease without esophagitis; Z88.0 Allergy status to penicillin
CPT/HCPCS: 74022; 76700; 76856; 80053; 81003; 83690; 85025; 87086; 96361; 96374; 99283; J7040

== ENCOUNTER 2017-09-02 12:27 | Emergency (ER) | payer MEDICAID ==
[2017-09-02 12:27] VITALS: BMI 23.4
[2017-09-02] MEDS ORDERED: Sodium Chloride 0.9% 1,000 ML IV STA (13:48)
--- NOTE | 2017-09-02 14:33 | ED PDOC ---
HPI: Abdomen Time Seen by Provider: 09/02/17 12:46 Chief Complaint (Nursing): Abdominal Pain Chief Complaint (Provider): Abdominal Pain History Per: Patient History/Exam Limitations: no limitations Onset/Duration Of Symptoms: Days (x1 week) Current Symptoms Are (Timing): Still Present Additional Complaint(s): 56 y/o female with a PMHx of chronic pancreatitis presenting for evaluation of abdominal pain x1 week. Patient describes as gassy feeling in stomach and also reports generalized weakness. She states she had an intentional 20 lb weight loss over a year because her doctor put her on a diet. PMD: Meera Kessler Past Medical History Reviewed: Historical Data, Nursing Documentation, Vital Signs Vital Signs: Last Vital Signs Temp 97.3 F L 09/02/17 12:38 Pulse 90 09/02/17 12:38 Resp 18 09/02/17 12:38 BP 133/67 09/02/17 12:38 Pulse Ox 99 09/02/17 12:38 - Medical History PMH: Anxiety, Depression, Gastritis, GERD, Osteoporosis, Pancreatitis Denies: Diabetes, Hepatitis, HIV, HTN, Chronic Kidney Disease, Seizures, Sexually Transmitted Disease - Surgical History Surgical History: Appendectomy, Cholecystectomy, - Family History Family History: States: Unknown Family Hx - Home Medications Home Medications: Ambulatory Orders Medication Instructions Recorded Rabeprazole Sodium [Aciphex] 1 tab PO QAM 10/21/16 Sucralfate [Carafate Oral Susp] 1 gm PO DAILY 10/21/16 Famotidine [Pepcid] 20 mg PO DAILY #14 tab 01/03/17 Azithromycin [Zithromax Tri-Doe] 500 mg PO DAILY #3 tablet 03/06/17 Lansoprazole [Prevacid] 30 mg PO DAILY #7 capsule. 03/06/17 Promethazine/Codeine 5 ml PO Q12 PRN #50 ml 03/06/17 [Codeine/Promethazine 10 MG/5 Ml-6.25 MG/5 Ml] Dicyclomine [Bentyl] 20 mg PO BID PRN #30 tab 04/15/17 Omeprazole Magnesium [Prilosec Otc] 20 mg PO DAILY #30 tcp 04/15/17 Dicyclomine [Bentyl] 20 mg PO Q12 PRN #20 tab 06/04/17 Nitrofurantoin Macrocrystals 100 mg PO BID #14 cap 06/04/17 [Macrobid] Ibuprofen [Motrin Tab] 1 tab PO Q6 PRN #20 tab 06/25/17 Tamsulosin [Flomax] 0.4 mg PO DAILY #10 cap 06/25/17 - Allergies Allergies/Adverse Reactions: Allergies Allergy/AdvReac Type Severity Reaction Status Date / Time tetracycline Allergy Mild RASH Verified 06/04/17 16:05 iodine Allergy ANAPHYLAXIS Verified 06/04/17 16:05 morphine Allergy ANAPHYLAXIS Verified 06/04/17 16:05 Penicillins Allergy ANAPHYLAXIS Verified 06/04/17 16:05 Tetracyclines Allergy RASH Verified 06/04/17 16:05 Review of Systems ROS Statement: Except As Marked, All Systems Reviewed And Found Negative Constitutional: Positive for: Weakness, Weight loss (20 lbs) Gastrointestinal: Positive for: Abdominal Pain Physical Exam - Reviewed Nursing Documentation Reviewed: Yes Vital Signs Reviewed: Yes - Physical Exam Appears: Positive for: Non-toxic, No Acute Distress Head Exam: Positive for: ATRAUMATIC, NORMAL INSPECTION, NORMOCEPHALIC Skin: Positive for: Normal Color, Warm, Dry. Negative for: Rash Eye Exam: Positive for: EOMI, Normal appearance, PERRL Neck: Positive for: Normal, Painless ROM, Supple Cardiovascular/Chest: Positive for: Regular Rate, Rhythm. Negative for: Murmur Respiratory: Positive for: Normal Breath Sounds. Negative for: Respiratory Distress Gastrointestinal/Abdominal: Positive for: Tenderness (generalized abdominal tenderness with most in epigastric region). Negative for: Guarding, Rebound Back: Positive for: Normal Inspection. Negative for: L CVA Tenderness, R CVA Tenderness, Vertebral Tenderness Extremity: Positive for: Normal ROM. Negative for: Pedal Edema, Deformity Neurologic/Psych: Positive for: Alert, Oriented. Negative for: Motor/Sensory Deficits - ECG O2 Sat by Pulse Oximetry: 99 (RA) Pulse Ox Interpretation: Normal Medical Decision Making Medical Decision Makin:47 Impression: Pancreatitis, gastritis Plan: --CT abdomen and pelvis w/ IV contrast --CMP --EKG --Lipase --Urine dipstick --CBC --PTT/PT --CXR --Glucose, POC --1LNS --Urinalysis --Reevaluation Upon review of old records, patent here multiple times for same. ----- Scribe Attestation: Documented by Mustapha Langston, acting as a scribe for Kassandra Hsu MD. Provider Scribe Attestation: All medical record entries made by the Scribe were at my direction and personally dictated by me. I have reviewed the chart and agree that the record accurately reflects my personal performance of the history, physical exam, medical decision making, and the department course for this patient. I have also personally directed, reviewed, and agree with the discharge instructions and disposition. Disposition - Disposition
[2017-09-02 15:13] LABS: BASO % 0.7 % (0.0-2.0); EOS # 0.1 K/uL (0.0-0.7); EOS % 1.1 % (0.0-4.0); HEMOGLOBIN 12.7 g/dL (12.0-16.0); LYMPH # 1.3 K/uL (1.0-4.3); LYMPH % 21.8 % (20.0-40.0); MEAN CELL VOLUME 95.1 fl (81.0-99.0); MEAN CORPUSCULAR HEMOGLOBIN 31.5 pg (27.0-31.0); MEAN CORPUSCULAR HGB CONC 33.1 g/dL (33.0-37.0); MEAN PLATELET VOLUME 8.2 fl (7.2-11.7); MONO # 0.4 K/uL (0.0-0.8); MONO % 6.8 % (0.0-10.0); NEUT # 4.1 K/uL (1.8-7.0); NEUT % 69.6 % (50.0-75.0); RBC 4.02 Mil/uL (3.80-5.20); RED CELL DISTRIBUTION WIDTH 13.3 % (11.5-14.5); WHITE BLOOD COUNT 5.9 K/uL (4.8-10.8)
--- NOTE | 2017-09-02 15:17 | ED PDOC ---
- Laboratory Results Result Diagrams: 09/02/17 15:07 09/02/17 15:07 - ECG O2 Sat by Pulse Oximetry: 99 (RA) - Progress Re-evaluation Time: 18:11 Condition: Re-examined, Improved Medical Decision Making Medical Decision Makin:00 Patient endorsed to me by Dr. Hsu pending labs, CXR, and CT abdomen. Accession No. : [id number] Patient Name / ID : UMER VELAZQUEZ / [id number] Exam Date : 09/02/2017 14:26:10 ( Approved ) Study Comment : Sex / Age : F / 56Y Creator : Alfonso Roque MD Dictator : Alfonso Roque MD Chief Human Resources Officer : Commercial Counsel : Alfonso Roque MD Approver2 : Report Date : 09/02/2017 15:34:57 My Comment : HISTORY: Abd pain COMPARISON: Chest radiographs 04/07/2017. TECHNIQUE: Chest PA and lateral FINDINGS: LUNGS: No active pulmonary disease. PLEURA: No significant pleural effusion identified. No pneumothorax apparent. CARDIOVASCULAR: Normal. OSSEOUS STRUCTURES: No significant abnormalities. VISUALIZED UPPER ABDOMEN: Normal. OTHER FINDINGS: None. IMPRESSION: No interval acute cardiopulmonary disease appreciated. Accession No. : [id number] Patient Name / ID : UMER VELAZQUEZ / [id number] Exam Date : 09/02/2017 16:26:51 ( Approved ) Study Comment : Sex / Age : F / 56Y Creator : Alfonso Roque MD Dictator : Alfonso Roque MD Chief Human Resources Officer : Commercial Counsel : Alfonso Roque MD Approver2 : Report Date : 09/02/2017 17:50:13 My Comment : PROCEDURE: CT Abdomen and Pelvis without intravenous contrast HISTORY: abdominal pain COMPARISON: Abdomen and pelvis CT without contrast 06/04/2017. TECHNIQUE: Helical CT of the abdomen and pelvis was performed without oral or intravenous contrast as per referring physician request. Contrast dose: None Radiation dose: Total exam DLP = 266.74 mGy-cm. This CT exam was performed using one or more of the following dose reduction techniques: Automated exposure control, adjustment of the mA and/or kV according to patient size, and/or use of iterative reconstruction technique. FINDINGS: LOWER THORAX: Limited bilateral basilar atelectasis identified as well as a tiny hiatal hernia. LIVER: Unremarkable. No gross lesion or ductal dilatation. GALLBLADDER AND BILE DUCTS: Potentially surgically absent gallbladder reiterated. Clinically correlate. PANCREAS: Unremarkable. No gross lesion or ductal dilatation. SPLEEN: Unremarkable. ADRENALS: Unremarkable. No mass. KIDNEYS AND URETERS: Punctate renal calculus reiterated at the midpole right kidney with none identified the left. No obstructive uropathy bilaterally. Mildly prominent right extrarenal pelvis reiterated. VASCULATURE: Unremarkable. No aortic aneurysm. BOWEL: Scattered colonic diverticulosis without diverticulitis. No bowel obstruction appreciated throughout. APPENDIX: Not identified. No CT evidence of appendicitis. PERITONEUM: Unremarkable. No free fluid. No free air. LYMPH NODES: Unremarkable. No enlarged lymph nodes. BLADDER: Distended but thin walled urinary bladder identified. REPRODUCTIVE: Unremarkable. BONES: No acute fracture. OTHER FINDINGS: None. IMPRESSION: No definite acute abdominal or pelvic findings including obstructive uropathy bilaterally. Punctate intrarenal calculus reiterated right kidney. Scattered colonic diverticulosis without diverticulitis. Scribe Attestation: Documented by Mustapha Langston, acting as a scribe for Tuan Thomas MD. Provider Scribe Attestation: All medical record entries made by the Scribe were at my direction and personally dictated by me. I have reviewed the chart and agree that the record accurately reflects my personal performance of the history, physical exam, medical decision making, and the department course for this patient. I have also personally directed, reviewed, and agree with the discharge instructions and disposition. Disposition Counseled Patient/Family Regarding: Studies Performed, Diagnosis - Clinical Impression Clinical Impression: Abdominal pain in female - POA Present On Arrival: None - Disposition Referrals: Gallito Delacruz MD [Medical Doctor] - Disposition: Routine/Home Disposition Time: 18:12 Condition: GOOD Additional Instructions: take your medications as instructed. Follow up with your PCP in 2-3 days. Instructions: Gastritis
[2017-09-02 15:36] LABS: PARTIAL THROMBOPLASTIN TIME 30.2 Seconds (25.6-37.1); PROTHROMBIN TIME 11.4 Seconds (9.8-13.1)
--- NOTE | 2017-09-02 15:36 | RAD ---
HISTORY: Abd pain COMPARISON: Chest radiographs 04/07/2017. TECHNIQUE: Chest PA and lateral FINDINGS: LUNGS: No active pulmonary disease. PLEURA: No significant pleural effusion identified. No pneumothorax apparent. CARDIOVASCULAR: Normal. OSSEOUS STRUCTURES: No significant abnormalities. VISUALIZED UPPER ABDOMEN: Normal. OTHER FINDINGS: None. IMPRESSION: No interval acute cardiopulmonary disease appreciated.
[2017-09-02 15:52] LABS: URINE BILIRUBIN NEGATIVE (NEGATIVE); URINE BLOOD NEGATIVE (NEGATIVE); URINE CLARITY CLEAR (Clear); URINE COLOR STRAW (YELLOW); URINE GLUCOSE (UA) NEG (Normal); URINE LEUKOCYTE ESTERASE NEG Leu/uL (Negative); URINE PROTEIN NEGATIVE (NEGATIVE); URINE UROBILINOGEN 0.2-1.0 mg/dL (0.2-1.0)
[2017-09-02 16:11] LABS: ALBUMIN 4.1 g/dL (3.5-5.0); CALCIUM 9.9 mg/dL (8.4-10.2); GFR AFRICAN-AMERICAN > 60; GFR NON-AFRICAN AMERICAN > 60; LIPASE 107 U/L (23-300)
[2017-09-02] MEDS ORDERED: Iohexol 300 100 ML IJ ONE (16:18)
[2017-09-02] MEDS ORDERED: Sodium Chloride 0.9% 0 ML IV ONE (16:18)
[2017-09-02 16:42] LABS: ALT/SGPT 24 U/L (9-52); AST/SGOT 34 U/L (14-36); BLOOD UREA NITROGEN 12 mg/dl (7-17)
[2017-09-02] MEDS ORDERED: Alum-Mag Hydrox-Simethicone Susp (30 mL) PO ONE (17:04)
[2017-09-02] MEDS ORDERED: Famotidine 20mg/50ml 20 MG/50 ML BAG IVPB ONE (17:09)
[2017-09-02] MEDS ORDERED: Alum-Mag Hydrox-Simethicone Susp (30 mL) ONE (17:39)
--- NOTE | 2017-09-02 17:52 | CT ---
PROCEDURE: CT Abdomen and Pelvis without intravenous contrast HISTORY: abdominal pain COMPARISON: Abdomen and pelvis CT without contrast 06/04/2017. TECHNIQUE: Helical CT of the abdomen and pelvis was performed without oral or intravenous contrast as per referring physician request. Contrast dose: None Radiation dose: Total exam DLP = 266.74 mGy-cm. This CT exam was performed using one or more of the following dose reduction techniques: Automated exposure control, adjustment of the mA and/or kV according to patient size, and/or use of iterative reconstruction technique. FINDINGS: LOWER THORAX: Limited bilateral basilar atelectasis identified as well as a tiny hiatal hernia. LIVER: Unremarkable. No gross lesion or ductal dilatation. GALLBLADDER AND BILE DUCTS: Potentially surgically absent gallbladder reiterated. Clinically correlate. PANCREAS: Unremarkable. No gross lesion or ductal dilatation. SPLEEN: Unremarkable. ADRENALS: Unremarkable. No mass. KIDNEYS AND URETERS: Punctate renal calculus reiterated at the midpole right kidney with none identified the left. No obstructive uropathy bilaterally. Mildly prominent right extrarenal pelvis reiterated. VASCULATURE: Unremarkable. No aortic aneurysm. BOWEL: Scattered colonic diverticulosis without diverticulitis. No bowel obstruction appreciated throughout. APPENDIX: Not identified. No CT evidence of appendicitis. PERITONEUM: Unremarkable. No free fluid. No free air. LYMPH NODES: Unremarkable. No enlarged lymph nodes. BLADDER: Distended but thin walled urinary bladder identified. REPRODUCTIVE: Unremarkable. BONES: No acute fracture. OTHER FINDINGS: None. IMPRESSION: No definite acute abdominal or pelvic findings including obstructive uropathy bilaterally. Punctate intrarenal calculus reiterated right kidney. Scattered colonic diverticulosis without diverticulitis.
[2017-09-02 18:51] VITALS: BP 131/75; PULSE 79; RESP 14; TEMP 97.9; O2SAT 100
--- NOTE | 2017-09-03 11:39 | CARD ---
APPROVED REPORT EKG Measurement Heart [id number] <Conclusion> Normal sinus rhythm Possible Left atrial enlargement Borderline ECG
== END 2017-09-02 19:16 | disposition home or self-care (01) ==
LOC: H.ER 12:27
DX: R10.2 Pelvic and perineal pain (principal); Z86.59 Personal history of other mental and behavioral disorders; K57.30 Diverticulosis of large intestine without perforation or abscess without bleeding; N20.0 Calculus of kidney; Z88.0 Allergy status to penicillin
CPT/HCPCS: 71046; 74176; 80053; 81003; 82948; 83690; 85025; 85610; 85730; 93005; 96374; 99284; J7030

== ENCOUNTER 2017-10-03 19:56 | Emergency (ER) | payer MEDICAID ==
[2017-10-03 19:56] VITALS: BMI 23.4
[2017-10-03 21:51] LABS: BASO % 0.6 % (0.0-2.0); EOS # 0.2 K/uL (0.0-0.7); EOS % 4.3 % (0.0-4.0); HEMOGLOBIN 11.9 g/dL (12.0-16.0); LYMPH # 1.6 K/uL (1.0-4.3); LYMPH % 33.5 % (20.0-40.0); MEAN CELL VOLUME 94.2 fl (81.0-99.0); MEAN CORPUSCULAR HEMOGLOBIN 31.5 pg (27.0-31.0); MEAN CORPUSCULAR HGB CONC 33.5 g/dL (33.0-37.0); MEAN PLATELET VOLUME 7.7 fl (7.2-11.7); MONO # 0.4 K/uL (0.0-0.8); NEUT # 2.6 K/uL (1.8-7.0); NEUT % 52.6 % (50.0-75.0); RBC 3.78 Mil/uL (3.80-5.20); RED CELL DISTRIBUTION WIDTH 13.7 % (11.5-14.5); WHITE BLOOD COUNT 4.9 K/uL (4.8-10.8)
[2017-10-03 22:07] LABS: ALB/GLOB RATIO 1.2 (1.0-2.1); ALBUMIN 4.1 g/dL (3.5-5.0); ALT/SGPT 30 U/L (9-52); AST/SGOT 22 U/L (14-36); BLOOD UREA NITROGEN 14 mg/dl (7-17); CALCIUM 9.8 mg/dL (8.4-10.2); GFR AFRICAN-AMERICAN > 60; GFR NON-AFRICAN AMERICAN > 60
[2017-10-03 22:54] LABS: SQUAMOUS EPITHIAL < 1 /hpf (0-5); URINE BILIRUBIN NEGATIVE (NEGATIVE); URINE BLOOD NEGATIVE (NEGATIVE); URINE CLARITY CLEAR (Clear); URINE COLOR STRAW (YELLOW); URINE GLUCOSE (UA) NEG (Normal); URINE LEUKOCYTE ESTERASE NEG Leu/uL (Negative); URINE PROTEIN NEGATIVE (NEGATIVE); URINE UROBILINOGEN 0.2-1.0 mg/dL (0.2-1.0)
--- NOTE | 2017-10-03 23:12 | ED PDOC ---
HPI: Back Time Seen by Provider: 10/03/17 21:19 Chief Complaint (Nursing): Back Pain Chief Complaint (Provider): Back Pain History Per: Patient History/Exam Limitations: no limitations Onset/Duration Of Symptoms: Days (x3) Current Symptoms Are (Timing): Still Present Additional Complaint(s): 56 year old female, medical history of pancreatitis, kidney stones and reflux, presents to ED with complaints of right-sided flank pain associated with right-sided mid-abdominal pain, urine urgency and frequency. He denies any further complaints. PMD: Dr. Meera Kessler Past Medical History Reviewed: Historical Data, Nursing Documentation, Vital Signs Vital Signs: Last Vital Signs Temp 98.2 F 10/03/17 20:30 Pulse 73 10/03/17 20:30 Resp 16 10/03/17 20:30 BP 131/72 10/03/17 20:30 Pulse Ox 100 10/03/17 20:30 - Medical History PMH: Anxiety, Depression, Gastritis, GERD, Osteoporosis, Pancreatitis Denies: Diabetes, Hepatitis, HIV, HTN, Chronic Kidney Disease, Seizures, Sexually Transmitted Disease - Surgical History Surgical History: Appendectomy, Cholecystectomy, - Family History Family History: States: Unknown Family Hx - Home Medications Home Medications: Ambulatory Orders Medication Instructions Recorded Rabeprazole Sodium [Aciphex] 1 tab PO QAM 10/21/16 Sucralfate [Carafate Oral Susp] 1 gm PO DAILY 10/21/16 Famotidine [Pepcid] 20 mg PO DAILY #14 tab 01/03/17 Azithromycin [Zithromax Tri-Doe] 500 mg PO DAILY #3 tablet 03/06/17 Lansoprazole [Prevacid] 30 mg PO DAILY #7 capsule. 03/06/17 Promethazine/Codeine 5 ml PO Q12 PRN #50 ml 03/06/17 [Codeine/Promethazine 10 MG/5 Ml-6.25 MG/5 Ml] Dicyclomine [Bentyl] 20 mg PO BID PRN #30 tab 04/15/17 Dicyclomine [Bentyl] 20 mg PO Q12 PRN #20 tab 06/04/17 Nitrofurantoin Macrocrystals 100 mg PO BID #14 cap 06/04/17 [Macrobid] Ibuprofen [Motrin Tab] 1 tab PO Q6 PRN #20 tab 06/25/17 Tamsulosin [Flomax] 0.4 mg PO DAILY #10 cap 06/25/17 Omeprazole Magnesium [Prilosec Otc] 20 mg PO DAILY #30 tcp 09/02/17 Dicyclomine [Bentyl] 20 mg PO Q12 PRN #20 tab 10/04/17 - Allergies Allergies/Adverse Reactions: Allergies Allergy/AdvReac Type Severity Reaction Status Date / Time tetracycline Allergy Mild RASH Verified 10/03/17 20:23 iodine Allergy ANAPHYLAXIS Verified 10/03/17 20:23 morphine Allergy ANAPHYLAXIS Verified 10/03/17 20:23 Penicillins Allergy ANAPHYLAXIS Verified 10/03/17 20:23 Tetracyclines Allergy RASH Verified 10/03/17 20:23 Review of Systems ROS Statement: Except As Marked, All Systems Reviewed And Found Negative Gastrointestinal: Positive for: Abdominal Pain (middle, right-sided) Genitourinary Female: Positive for: Frequency (with urgency) Musculoskeletal: Positive for: Back Pain (right flank) Physical Exam - Reviewed Nursing Documentation Reviewed: Yes Vital Signs Reviewed: Yes - Physical Exam Appears: Positive for: Uncomfortable (mild discomfort) Head Exam: Positive for: ATRAUMATIC, NORMAL INSPECTION, NORMOCEPHALIC Skin: Positive for: Normal Color Eye Exam: Positive for: Normal appearance ENT: Positive for: Normal ENT Inspection Neck: Positive for: Normal Cardiovascular/Chest: Positive for: Regular Rate, Rhythm. Negative for: Murmur Respiratory: Positive for: Normal Breath Sounds. Negative for: Wheezing, Respiratory Distress Gastrointestinal/Abdominal: Positive for: Normal Exam, Soft. Negative for: Tenderness Back: Positive for: R CVA Tenderness. Negative for: L CVA Tenderness Extremity: Positive for: Normal ROM (upper/lower) Neurologic/Psych: Positive for: Alert, Oriented. Negative for: Motor/Sensory Deficits - Laboratory Results Result Diagrams: 10/03/17 21:47 10/03/17 21:47 - ECG O2 Sat by Pulse Oximetry: 100 (RA) Pulse Ox Interpretation: Normal Medical Decision Making Medical Decision Making: Initial Impression: 56 y/o female with right-sided flank pain in setting of known previous kidney stones Initial Plan: * CMP * Lipase * Urine * Urine dipstick * CBC * Toradol 15mg IVP * UA * US pelvis/transvaginal * US renal Time: 2134 --CT ABD was deferred due to patient having undergone 3 CTs in this calender year. Time: 2299 --Urine: negative for active infection. US Renal: FINDINGS: Right kidney: Normal echogenicity. No mass. No calculi. No hydronephrosis. Left kidney: Normal echogenicity. No mass. No calculi. No hydronephrosis. Bladder: Unremarkable. Ureteral jets not visualized. IMPRESSION: 1. No acute findings. US Pelvis/Transvaginal: FINDINGS: Uterus/cervix: No myometrial mass. Endometrium: 0.4 cm in thickness. Probable nabothian cyst. Right ovary: Not visualized. Left ovary: Not visualized. Free fluid: No significant free fluid. IMPRESSION: 1. No acute findings. 2. Non-acute findings are described above 1:15 --Labs reviewed with no clinically significant abnormalities. --Upon provider evaluation, patient is stable and ready for discharge. Scribe Attestation: Documented by Jovita Miranda, acting as a scribe for Jerry Dominguez MD. Provider Scribe Attestation: All medical record entries made by the Scribe were at my direction and personally dictated by me. I have reviewed the chart and agree that the record accurately reflects my personal performance of the history, physical exam, medical decision making, and the department course for this patient. I have also personally directed, reviewed, and agree with the discharge instructions and disposition. Disposition - Clinical Impression Clinical Impression: Abdominal pain - Patient ED Disposition Is Patient to be Admitted: No - Disposition Disposition: Routine/Home Disposition Time: 01:15 Condition: STABLE Prescriptions: Dicyclomine [Bentyl] 20 mg PO Q12 PRN #20 tab PRN Reason: abdominal pain Instructions: Stomach Ache and Stomach Upset Forms: [employer] (Mauritian) Print Language: NICARAGUAN
[2017-10-04 02:15] VITALS: BP 138/70; PULSE 72; RESP 15; TEMP 98.5; O2SAT 99
--- NOTE | 2017-10-04 10:33 | US ---
Date of service: 10/03/2017 HISTORY: pelvic pain COMPARISON: None available. TECHNIQUE: Transabdominal and transvaginal FINDINGS: UTERUS: Measures 7.4 x 2.6 x 3.8 cm. Normal in size and appearance. No fibroid or other mass lesion seen. ENDOMETRIUM: Measures 3 mm in diameter. Unremarkable. CERVIX: Incidental cervical nabothian cyst, 1.4 cm. No other mass. RIGHT OVARY: Not visualized by transabdominal or transvaginal technique. LEFT OVARY: Not visualized by transabdominal or transvaginal technique. FREE FLUID: No significant free fluid noted. OTHER FINDINGS: None. IMPRESSION: Unremarkable examination. Ovaries not visualized.
--- NOTE | 2017-10-04 10:34 | US ---
Date of service: 10/03/2017 PROCEDURE: Ultrasound of the Kidneys HISTORY: flank pain COMPARISON: None available. TECHNIQUE: Sonogram of the kidneys. FINDINGS: RIGHT KIDNEY: Measures: 11.0 cm. Normal in size, contour and echogenicity. No stone, solid mass lesion or hydronephrosis visualized. LEFT KIDNEY: Measures: 10.5 cm. Normal in size, contour and echogenicity. No stone, solid mass lesion or hydronephrosis visualized. OTHER FINDINGS: None. IMPRESSION: Unremarkable renal sonogram.
== END 2017-10-04 02:15 | disposition home or self-care (01) ==
LOC: H.ER 19:56
DX: R10.9 Unspecified abdominal pain (principal); K85.90 Acute pancreatitis without necrosis or infection, unspecified
CPT/HCPCS: 76770; 76830; 76856; 80053; 81003; 83690; 85025; 96372; 99283; J1885

== ENCOUNTER 2017-11-02 19:19 | Emergency (ER) | payer MEDICAID ==
[2017-11-02 19:20] VITALS: BMI 23.4
[2017-11-02 19:31] VITALS: BP 142/72; PULSE 84; RESP 20; TEMP 98.3; O2SAT 99
[2017-11-02] MEDS ORDERED: Sodium Chloride 0.9% 1,000 ML IV STA (20:09)
[2017-11-02] MEDS ORDERED: Barium Sulfate Susp 2.1% w/v, 2.0% w/w 450 mL Bottle PO ONE ×3 (20:30→21:30)
--- NOTE | 2017-11-02 20:33 | ED PDOC ---
HPI: Abdomen Time Seen by Provider: 11/02/17 19:47 Chief Complaint (Nursing): Abdominal Pain Chief Complaint (Provider): Abdominal Pain History Per: Patient History/Exam Limitations: no limitations Onset/Duration Of Symptoms: Days (x3 weeks) Current Symptoms Are (Timing): Still Present Additional Complaint(s): 56 year old female with a history of gastritis, abdominal pain, chronic back pain, and depression presents to the ED with worsening lower abdominal pain onset 3 weeks, associated dysuria, rectal pain during bowel movements, intermittent leg cramping onset 3 weeks, and lower back pain onset 3 weeks. Patient reports she is taking Advil and Tylenol with minimal relief. She denies any weakness, numbness, fever, or other medical complaints. Patient was seen by her doctor a few weeks ago, diagnosed with UTI, she recently finished her Macrobid. She saw her neurologist last week, had an MRI of lower back taken but does not know results. PMD: Dr. Kessler Past Medical History Vital Signs: Last Vital Signs Temp 98.3 F 11/02/17 19:28 Pulse 84 11/02/17 19:28 Resp 20 11/02/17 19:28 BP 142/72 11/02/17 19:28 Pulse Ox 99 11/03/17 02:07 - Medical History PMH: Anxiety, Depression, Gastritis, GERD, Osteoporosis, Pancreatitis Denies: Diabetes, Hepatitis, HIV, HTN, Chronic Kidney Disease, Seizures, Sexually Transmitted Disease - Surgical History Surgical History: Appendectomy, Cholecystectomy, - Family History Family History: States: Unknown Family Hx - Home Medications Home Medications: Ambulatory Orders Medication Instructions Recorded Rabeprazole Sodium [Aciphex] 1 tab PO QAM 10/21/16 Sucralfate [Carafate Oral Susp] 1 gm PO DAILY 10/21/16 Famotidine [Pepcid] 20 mg PO DAILY #14 tab 01/03/17 Azithromycin [Zithromax Tri-Doe] 500 mg PO DAILY #3 tablet 03/06/17 Lansoprazole [Prevacid] 30 mg PO DAILY #7 capsule. 03/06/17 Promethazine/Codeine 5 ml PO Q12 PRN #50 ml 03/06/17 [Codeine/Promethazine 10 MG/5 Ml-6.25 MG/5 Ml] Dicyclomine [Bentyl] 20 mg PO BID PRN #30 tab 04/15/17 Dicyclomine [Bentyl] 20 mg PO Q12 PRN #20 tab 06/04/17 Nitrofurantoin Macrocrystals 100 mg PO BID #14 cap 06/04/17 [Macrobid] Ibuprofen [Motrin Tab] 1 tab PO Q6 PRN #20 tab 06/25/17 Tamsulosin [Flomax] 0.4 mg PO DAILY #10 cap 06/25/17 Omeprazole Magnesium [Prilosec Otc] 20 mg PO DAILY #30 tcp 09/02/17 Dicyclomine [Bentyl] 20 mg PO Q12 PRN #20 tab 10/04/17 Gabapentin 300 mg PO HS #15 capsule 11/03/17 - Allergies Allergies/Adverse Reactions: Allergies Allergy/AdvReac Type Severity Reaction Status Date / Time tetracycline Allergy Mild RASH Verified 10/03/17 20:23 iodine Allergy ANAPHYLAXIS Verified 10/03/17 20:23 morphine Allergy ANAPHYLAXIS Verified 10/03/17 20:23 Penicillins Allergy ANAPHYLAXIS Verified 10/03/17 20:23 prednisone Allergy RASH Verified 11/02/17 19:26 Tetracyclines Allergy RASH Verified 10/03/17 20:23 Review of Systems ROS Statement: Except As Marked, All Systems Reviewed And Found Negative Constitutional: Negative for: Fever Cardiovascular: Negative for: Chest Pain Respiratory: Negative for: Shortness of Breath Gastrointestinal: Positive for: Abdominal Pain, Rectal Pain, Other (no rectal bleeding) Genitourinary Female: Positive for: Dysuria. Negative for: Hematuria Musculoskeletal: Positive for: Back Pain (lower), Leg Pain, Other (leg cramping) Neurological: Negative for: Weakness, Numbness Physical Exam - Reviewed Nursing Documentation Reviewed: Yes Vital Signs Reviewed: Yes - Physical Exam Appears: Positive for: Non-toxic, No Acute Distress (comfy) Head Exam: Positive for: ATRAUMATIC, NORMOCEPHALIC Skin: Positive for: Normal Color, Warm, Dry Eye Exam: Positive for: EOMI, Normal appearance, PERRL Neck: Positive for: Normal, Painless ROM, Supple Cardiovascular/Chest: Positive for: Regular Rate, Rhythm. Negative for: Murmur Respiratory: Positive for: Normal Breath Sounds. Negative for: Respiratory Distress Gastrointestinal/Abdominal: Positive for: Tenderness (suprapubic). Negative for : Mass, Guarding, Rebound Extremity: Positive for: Normal ROM. Negative for: Pedal Edema, Deformity Neurologic/Psych: Positive for: Alert, Oriented (x3), Gait (steady). Negative for: Motor/Sensory Deficits - Laboratory Results Result Diagrams: 11/02/17 20:38 11/02/17 20:38 - ECG O2 Sat by Pulse Oximetry: 99 (RA) Pulse Ox Interpretation: Normal - Progress Re-evaluation Time: 01:30 Condition: Re-examined, Improved Medical Decision Making Medical Decision Making: Time: 20:08 Initial Impression: abdominal pain, dysuria and lower back pain Differential diagnoses include but are not limited to: UTI, pelvic inflammatory disease, colitis, mass, diverticulitis Initial Plan: --Abdomen and pelvis CT --Lumbar spine CT --CMP --Magnesium --Urine dip --CBC with differentials --Readi-Cat 2 300ml PO Time: 22:[address] FINDINGS: Vertebrae: Unremarkable. No acute fracture. Discs/spinal canal/neural foramina: No acute findings. No spinal canal stenosis. Soft tissues: Unremarkable. IMPRESSION: No acute lumbar spine finding Time: 2348 US RESULTS FINDINGS: Uterus/cervix: Nabothian cysts in the cervix measures up to 1.4 cm. Normal endometrial stripe 0.4 cm. No myometrial mass. Right ovary: Not seen. Normal blood flow. Left ovary: Not seen. Normal blood flow. Free fluid: No free fluid. IMPRESSION: 1. Nabothian cysts in the cervix. No uterine fibroids. 2. Ovaries obscured by bowel gas. EXAM: US Pelvis, Transvaginal CLINICAL HISTORY: 56 years old, female; Pain; Pelvic pain TECHNIQUE: Real-time transvaginal pelvic ultrasound (complete) with image documentation. Transvaginal imaging was used for better evaluation of the endometrium and adnexa. COMPARISON: PELVIS/TRANSVAG US 2017-10-03 23:22 FINDINGS: Uterus/cervix: Nabothian cysts in the cervix measures up to 1.4 cm. Normal endometrial stripe 0.4 cm. No myometrial mass. Right ovary: Not seen. Normal blood flow. Left ovary: Not seen. Normal blood flow. Free fluid: No free fluid. IMPRESSION: 1. Nabothian cysts in the cervix. No uterine fibroids. 2. Ovaries obscured by bowel gas. Thank you for allowing us to participate in the care of your patient. Dictated and Authenticated by: Timothy Chawla MD 11/02/2017 11:48 PM Eastern Time ([place] & [place]) Time: 0026 CT ABD RESULTS FINDINGS: Lung bases: Unremarkable. No mass. No consolidation. ABDOMEN: Liver: Unremarkable. Gallbladder and bile ducts: Unremarkable. No calcified stones. No ductal dilation. Pancreas: Unremarkable. No ductal dilation. Spleen: Unremarkable. No splenomegaly. Adrenals: Unremarkable. No mass. Kidneys and ureters: Unremarkable. No obstructing stones. No hydronephrosis. Stomach and bowel: Unremarkable. No obstruction. PELVIS: Appendix: No findings to suggest acute appendicitis. Bladder: Unremarkable. No stones. Reproductive: Unremarkable as visualized. ABDOMEN and PELVIS: Intraperitoneal space: Unremarkable. No free air. No significant fluid collection. Bones/joints: No acute fracture. No dislocation. Soft tissues: Unremarkable. Vasculature: Unremarkable. No abdominal aortic aneurysm. Lymph nodes: Unremarkable. No enlarged lymph nodes. IMPRESSION: 1. No acute abnormality in the abdomen, or pelvis. 2. Remainder of findings as above. Thank you for allowing us to participate in the care of your patient. Dictated and Authenticated by: Deny Liao MD 11/03/2017 12:26 AM Eastern Time ( & [place]) Scribe Attestation: Documented by Yessi Venegas, acting as a scribe for Tuan Thomas MD Provider Scribe Attestation: All medical record entries made by the Scribe were at my direction and personally dictated by me. I have reviewed the chart and agree that the record accurately reflects my personal performance of the history, physical exam, medical decision making, and the department course for this patient. I have also personally directed, reviewed, and agree with the discharge instructions and disposition. Disposition - Clinical Impression Clinical Impression: Pelvic pain in female, Dysuria, Lower back pain, Leg cramp - Patient ED Disposition Is Patient to be Admitted: No Doctor Will See Patient In The: Office Counseled Patient/Family Regarding: Studies Performed, Diagnosis, Need For Followup - Disposition Referrals: Tri Campa MD [Medical Doctor] - Disposition: Routine/Home Disposition Time: 01:44 Condition: GOOD Additional Instructions: Take your medications as instructed. Follow up with your PCP in 2-3 days. Prescriptions: Gabapentin 300 mg PO HS #15 capsule Instructions: Chronic Pelvic Pain in Women, Dysuria, Adult (DC) Print Language: ITALIAN
[2017-11-02 20:48] LABS: BASO % 0.5 % (0.0-2.0); EOS # 0.2 K/uL (0.0-0.7); EOS % 2.4 % (0.0-4.0); LYMPH # 1.8 K/uL (1.0-4.3); LYMPH % 25.7 % (20.0-40.0); MEAN CELL VOLUME 94.1 fl (81.0-99.0); MEAN PLATELET VOLUME 8.2 fl (7.2-11.7); MONO # 0.5 K/uL (0.0-0.8); MONO % 7.4 % (0.0-10.0); NEUT # 4.4 K/uL (1.8-7.0); NRBC % 0.2 % (0.0-0.0); RBC 4.06 Mil/uL (3.80-5.20); RED CELL DISTRIBUTION WIDTH 13.2 % (11.5-14.5); WHITE BLOOD COUNT 6.8 K/uL (4.8-10.8)
[2017-11-02 20:51] LABS: SQUAMOUS EPITHIAL 1 /hpf (0-5); URINE BACTERIA RARE (<OCC); URINE BILIRUBIN NEGATIVE (NEGATIVE); URINE BLOOD NEGATIVE (NEGATIVE); URINE CLARITY CLEAR (Clear); URINE COLOR COLORLESS (YELLOW); URINE GLUCOSE (UA) NEG (Normal); URINE LEUKOCYTE ESTERASE NEG Leu/uL (Negative); URINE PROTEIN NEGATIVE (NEGATIVE); URINE UROBILINOGEN 0.2-1.0 mg/dL (0.2-1.0)
[2017-11-02 21:12] LABS: ALB/GLOB RATIO 1.2 (1.0-2.1); ALBUMIN 4.1 g/dL (3.5-5.0); ALT/SGPT 28 U/L (9-52); AST/SGOT 28 U/L (14-36); BLOOD UREA NITROGEN 20 mg/dl (7-17); GFR AFRICAN-AMERICAN > 60; GFR NON-AFRICAN AMERICAN > 60
--- NOTE | 2017-11-03 09:37 | CT ---
Date of service: 11/02/2017 PROCEDURE: CT Lumbar Spine without contrast HISTORY: lower back pain lower abd pain COMPARISON: None available. TECHNIQUE: Axial computed tomography images were obtained of the lumbar spine without the use of intravenous contrast. Coronal and sagittal reformatted images were created and reviewed. Radiation dose: Total exam DLP = 406.56 mGy-cm. This CT exam was performed using one or more of the following dose reduction techniques: Automated exposure control, adjustment of the mA and/or kV according to patient size, and/or use of iterative reconstruction technique. FINDINGS: VERTEBRAE: The vertebral bodies are maintained in height. The transverse processes and posterior elements are intact. Normal alignment is maintained. DISCS/SPINAL CANAL/NEURAL FORAMINA: L1-2: Unremarkable. L2-3: Unremarkable. L3-4: Unremarkable. L4-5: Minimal disc bulge. No focal herniation. No spinal or foraminal stenosis. L5-S1: Mild asymmetric disc bulge towards the left. No focal herniation. No spinal or foraminal stenosis. PARASPINAL SOFT TISSUES: Unremarkable. OTHER FINDINGS: None. IMPRESSION: Disc bulge L4-5 and L5-S1. No spinal or neural foraminal stenosis. Otherwise unremarkable examination. The preliminary findings for this examination were reported by [facility] at 10:26 p.m. on 11/02/2017. There is concurrence of this report with the preliminary findings.
--- NOTE | 2017-11-03 10:07 | CT ---
Date of service: 11/02/2017 PROCEDURE: CT Abdomen and Pelvis without intravenous contrast HISTORY: lower abdominal pain dysuria rectal pain COMPARISON: 09/02/2017 TECHNIQUE: Without contrast.. Contrast dose: 0 Radiation dose: Total exam DLP = 277.20 mGy-cm. This CT exam was performed using one or more of the following dose reduction techniques: Automated exposure control, adjustment of the mA and/or kV according to patient size, and/or use of iterative reconstruction technique. FINDINGS: LOWER THORAX: Unremarkable. LIVER: Unremarkable. No gross lesion or ductal dilatation. GALLBLADDER AND BILE DUCTS: Gallbladder not visualized. No surgical clips in gallbladder fossa. Nevertheless, please correlate with any history of prior cholecystectomy. PANCREAS: Unremarkable. No gross lesion or ductal dilatation. SPLEEN: Unremarkable. ADRENALS: Unremarkable. No mass. KIDNEYS AND URETERS: Punctate nonobstructing mid right renal calculus unchanged from prior CT. No renal mass. No hydronephrosis. No left renal calculus. VASCULATURE: Unremarkable. No aortic aneurysm. BOWEL: Unremarkable. No obstruction. No gross mural thickening. APPENDIX: Unremarkable. Normal appendix. PERITONEUM: Unremarkable. No free fluid. No free air. LYMPH NODES: Unremarkable. No enlarged lymph nodes. BLADDER: Unremarkable. REPRODUCTIVE: Normal uterus BONES: No acute fracture. OTHER FINDINGS: None. IMPRESSION: Punctate nonobstructing mid right renal calculus unchanged from prior CT. No evidence of urinary tract obstruction. No other significant abnormality. The preliminary findings for this examination were reported by [facility] at 12:26 a.m. on 11/03/2017. There is discordance of this report with the preliminary findings. The right renal calculus noted above was not described in the preliminary report of this examination.
--- NOTE | 2017-11-03 12:09 | US ---
Date of service: 11/02/2017 HISTORY: pelvic pain COMPARISON: None available. TECHNIQUE: Transabdominal and transvaginal FINDINGS: UTERUS: Measures 6.4 x 1.8 x 3.9 cm. Normal in size and appearance. No fibroid or other mass lesion seen. ENDOMETRIUM: Measures 3 mm in diameter. Unremarkable. CERVIX: Cervical nabothian cyst 1.4 cm. Otherwise unremarkable. RIGHT OVARY: Not visualized LEFT OVARY: Not visualize FREE FLUID: No significant free fluid noted. OTHER FINDINGS: None. IMPRESSION: Unremarkable pelvic ultrasound examination. Ovaries were not visualized. No adnexal masses. 3 mm endometrium. No pelvic mass/fluid. The preliminary findings for this examination were reported by [facility] at 11:48 p.m. on 11/02/2017. There is concurrence of this report with the preliminary findings.
== END 2017-11-03 01:44 | disposition home or self-care (01) ==
LOC: H.ER 19:19
DX: R10.2 Pelvic and perineal pain (principal); R30.0 Dysuria; M54.5 Low back pain; R25.2 Cramp and spasm; N88.8 Other specified noninflammatory disorders of cervix uteri; Z88.0 Allergy status to penicillin
CPT/HCPCS: 72131; 74176; 76830; 76856; 80053; 81003; 83735; 85025; 87086; 96360; 96372; 99283; J1885; J7030

== ENCOUNTER 2017-11-20 16:58 | Emergency (ER) | payer MEDICAID ==
[2017-11-20 16:59] VITALS: BMI 23.4
--- NOTE | 2017-11-20 17:50 | ED PDOC ---
HPI: Chest Pain Time Seen by Provider: 11/20/17 17:39 Chief Complaint (Nursing): Chest Pain History Per: Patient Current Symptoms Are (Timing): Still Present Severity: Mild Associated Symptoms: denies: Dyspnea Exacerbating Factors: Movement, Deep Breathing Additional Complaint(s): Right sided chest pain radiating to right arm. since 12/09. Fell face forward at that time. Also had endoscopy since pain started. Denies SOB. Denies cough or fever. Past Medical History Vital Signs: Last Vital Signs Temp 98.0 F 11/20/17 18:16 Pulse 72 11/20/17 18:16 Resp 17 11/20/17 18:16 BP 136/76 11/20/17 18:16 Pulse Ox 99 11/20/17 18:16 - Medical History PMH: Anxiety, Depression, Gastritis, GERD, Osteoporosis, Pancreatitis Denies: Diabetes, Hepatitis, HIV, HTN, Chronic Kidney Disease, Seizures, Sexually Transmitted Disease - Surgical History Surgical History: Appendectomy, Cholecystectomy, - Family History Family History: States: Unknown Family Hx - Home Medications Home Medications: Ambulatory Orders Medication Instructions Recorded Rabeprazole Sodium [Aciphex] 1 tab PO QAM 10/21/16 Sucralfate [Carafate Oral Susp] 1 gm PO DAILY 10/21/16 Famotidine [Pepcid] 20 mg PO DAILY #14 tab 01/03/17 Azithromycin [Zithromax Tri-Doe] 500 mg PO DAILY #3 tablet 03/06/17 Lansoprazole [Prevacid] 30 mg PO DAILY #7 capsule. 03/06/17 Promethazine/Codeine 5 ml PO Q12 PRN #50 ml 03/06/17 [Codeine/Promethazine 10 MG/5 Ml-6.25 MG/5 Ml] Dicyclomine [Bentyl] 20 mg PO BID PRN #30 tab 04/15/17 Dicyclomine [Bentyl] 20 mg PO Q12 PRN #20 tab 06/04/17 Nitrofurantoin Macrocrystals 100 mg PO BID #14 cap 06/04/17 [Macrobid] Ibuprofen [Motrin Tab] 1 tab PO Q6 PRN #20 tab 06/25/17 Tamsulosin [Flomax] 0.4 mg PO DAILY #10 cap 06/25/17 Omeprazole Magnesium [Prilosec Otc] 20 mg PO DAILY #30 tcp 09/02/17 Dicyclomine [Bentyl] 20 mg PO Q12 PRN #20 tab 10/04/17 Gabapentin 300 mg PO HS #15 capsule 11/03/17 traMADol [Ultram] 50 mg PO Q8 #10 tab 11/20/17 - Allergies Allergies/Adverse Reactions: Allergies Allergy/AdvReac Type Severity Reaction Status Date / Time tetracycline Allergy Mild RASH Verified 11/20/17 17:10 iodine Allergy ANAPHYLAXIS Verified 11/20/17 17:10 morphine Allergy ANAPHYLAXIS Verified 11/20/17 17:10 Penicillins Allergy ANAPHYLAXIS Verified 11/20/17 17:10 prednisone Allergy RASH Verified 11/20/17 17:10 Tetracyclines Allergy RASH Verified 11/20/17 17:10 Review of Systems Constitutional: Negative for: Fever Cardiovascular: Positive for: Chest Pain Respiratory: Negative for: Cough, Shortness of Breath Physical Exam - Physical Exam Appears: Positive for: Non-toxic, No Acute Distress Skin: Positive for: Normal Color, Warm, DRY Neck: Positive for: Normal Cardiovascular/Chest: Positive for: Regular Rate, Rhythm, Chest Non Tender ( Right ant chest pain reproducible) Respiratory: Positive for: Normal Breath Sounds. Negative for: Respiratory Distress Extremity: Negative for: Calf Tenderness, Swelling - ECG O2 Sat by Pulse Oximetry: 100 Disposition - Clinical Impression Clinical Impression: Musculoskeletal pain - Patient ED Disposition Is Patient to be Admitted: No Counseled Patient/Family Regarding: Studies Performed, Diagnosis, Need For Followup, Rx Given - Disposition Disposition: Routine/Home Disposition Time: 18:59 Condition: FAIR Prescriptions: traMADol [Ultram] 50 mg PO Q8 #10 tab Instructions: Muscle and Bone Pain (DC) Forms: [facility] (Kyrgyz) Print Language: CZECH
[2017-11-20 19:33] VITALS: BP 124/78; PULSE 78; RESP 20; TEMP 98; O2SAT 98
--- NOTE | 2017-11-21 09:00 | RAD ---
Date of service: 11/20/2017 HISTORY: Chest pain COMPARISON: 09/02/2017 TECHNIQUE: Chest PA and lateral FINDINGS: LUNGS: No active pulmonary disease. PLEURA: No significant pleural effusion identified. No pneumothorax apparent. CARDIOVASCULAR: Normal. OSSEOUS STRUCTURES: Trace scoliosis noted VISUALIZED UPPER ABDOMEN: Normal. OTHER FINDINGS: None. IMPRESSION: No active disease. No interval pathology noted
== END 2017-11-20 19:33 | disposition home or self-care (01) ==
LOC: H.ER 16:58
DX: M79.1 Myalgia (principal); Z86.59 Personal history of other mental and behavioral disorders; Z88.0 Allergy status to penicillin

== ENCOUNTER 2018-02-10 12:49 | Emergency (ER) | payer MEDICAID ==
[2018-02-10 12:50] VITALS: BMI 23.4
[2018-02-10 13:28] VITALS: O2SAT 99
[2018-02-10] MEDS ORDERED: Sodium Chloride 0.9% 1,000 ML IV ONE (13:45)
--- NOTE | 2018-02-10 13:53 | ED PDOC ---
HPI: Headache Time Seen by Provider: 02/10/18 13:30 Chief Complaint (Nursing): Headache Chief Complaint (Provider): Headache History Per: Patient History/Exam Limitations: no limitations Onset/Duration Of Symptoms: Intermittent Episodes (x6 days) Current Symptoms Are (Timing): Still Present Additional Complaint(s): 57 year old female with pmHx of anxiety, depression, and GERD, arrives to ED accompanied by friend, for evaluation of intermittent dizziness for 6 days with headache, ongoing for the last 2 days. She describes headache as global and pressure-like. Patient expresses concern that her blood pressure felt elevated on 01/31/18 but she did not check it nor does she have a history of HTN. 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 She notes she has a pending appointment with her PCP on 02/13/18. She additionally reports having similar symptoms last year with spontaneous resolution. Otherwise: (-) fever, (-) chills, (-) nausea, (-) vomiting, (-) diarrhea, (-) rash, (-) chest pain, (-) shortness of breath, (-) abdominal pain, (-) URI symptoms, (-) recent travel, or (-) sick contact. PCP: Dr. Meera Kessler Past Medical History Reviewed: Historical Data, Nursing Documentation, Vital Signs Vital Signs: Last Vital Signs Temp 98.5 F 02/10/18 13:22 Pulse 90 02/10/18 13:22 Resp 18 02/10/18 13:22 BP 138/72 02/10/18 13:22 Pulse Ox 99 02/10/18 13:22 - Medical History PMH: Anxiety, Depression, Gastritis, GERD, Osteoporosis, Pancreatitis - Surgical History Surgical History: Appendectomy, Cholecystectomy, - Family History Family History: States: Unknown Family Hx - Social History Current smoker - smoking cessation education provided: No Alcohol: None Drugs: Denies - Home Medications Home Medications: Ambulatory Orders Medication Instructions Recorded RX: Rabeprazole Sodium [Aciphex] 1 tab PO QAM 10/21/16 RX: Sucralfate [Carafate Oral Susp] 1 gm PO DAILY 10/21/16 Famotidine [Pepcid] 20 mg PO DAILY #14 tab 01/03/17 Azithromycin [Zithromax Tri-Doe] 500 mg PO DAILY #3 tablet 03/06/17 Lansoprazole [Prevacid] 30 mg PO DAILY #7 capsule. 03/06/17 Promethazine/Codeine 5 ml PO Q12 PRN #50 ml 03/06/17 [Codeine/Promethazine 10 MG/5 Ml-6.25 MG/5 Ml] Dicyclomine [Bentyl] 20 mg PO BID PRN #30 tab 04/15/17 Dicyclomine [Bentyl] 20 mg PO Q12 PRN #20 tab 06/04/17 Nitrofurantoin Macrocrystals 100 mg PO BID #14 cap 06/04/17 [Macrobid] RX: Ibuprofen [Motrin Tab] 1 tab PO Q6 PRN #20 tab 06/25/17 Tamsulosin [Flomax] 0.4 mg PO DAILY #10 cap 06/25/17 Omeprazole Magnesium [Prilosec Otc] 20 mg PO DAILY #30 tcp 09/02/17 Dicyclomine [Bentyl] 20 mg PO Q12 PRN #20 tab 10/04/17 RX: Gabapentin 300 mg PO HS #15 capsule 11/03/17 RX: traMADol [Ultram] 50 mg PO Q8 #10 tab 11/20/17 Meloxicam [Mobic] 15 mg PO DAILY PRN #10 tab 02/10/18 RX: Meclizine [Meclizine*] 25 mg PO Q6 PRN #12 tab 02/10/18 - Allergies Allergies/Adverse Reactions: Allergies Allergy/AdvReac Type Severity Reaction Status Date / Time tetracycline Allergy Mild RASH Verified 11/20/17 17:10 iodine Allergy ANAPHYLAXIS Verified 11/20/17 17:10 morphine Allergy ANAPHYLAXIS Verified 11/20/17 17:10 Penicillins Allergy ANAPHYLAXIS Verified 11/20/17 17:10 prednisone Allergy RASH Verified 11/20/17 17:10 Tetracyclines Allergy RASH Verified 11/20/17 17:10 Review of Systems ROS Statement: Except As Marked, All Systems Reviewed And Found Negative Constitutional: Negative for: Fever, Chills ENT: Negative for: Ear Pain, Nose Congestion, Throat Pain Cardiovascular: Negative for: Chest Pain Respiratory: Negative for: Shortness of Breath Gastrointestinal: Negative for: Nausea, Vomiting, Abdominal Pain, Diarrhea Skin: Negative for: Rash Neurological: Positive for: Headache, Dizziness Physical Exam - Reviewed Nursing Documentation Reviewed: Yes Vital Signs Reviewed: Yes - Physical Exam Comments: GENERAL APPEARANCE: Patient is awake, alert, oriented x 3, in no acute distress. Resting comfortably. SKIN: Warm, dry; (-) cyanosis; (-) rash. HEAD: (-) scalp swelling or tenderness EYES: (-) conjunctival pallor, (-) scleral icterus. ENMT: Pharynx: clear, uvula midline (-) erythema (-) exudate. (-) sinus tendern ess; mucous membranes are moist. TMs: nonbulging, nonerythematous. Ear canals: (-) cerumen impaction. Nares patent. NECK: Supple, FROM (-) tenderness, (-) stiffness, (-) meningismus, (-) lymphadenopathy. CHEST AND RESPIRATORY: (-) rales, (-) rhonchi, (-) wheezes; breath sounds equal bilaterally. Respirations even and nonlabored, speaking in full sentences. HEART AND CARDIOVASCULAR: (-) irregularity ABDOMEN AND GI: Soft; (-) tenderness (-) guarding (-) distention (-) CVA Tenderness. EXTREMITIES: (-) deformity. NEURO AND PSYCH: Mental status as above. 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 Strength and smile symmetric. Gait: steady. Speech: clear. (-) aphasia. Cerebellar tests intact. - Laboratory Results Result Diagrams: 02/10/18 14:08 02/10/18 14:08 - ECG O2 Sat by Pulse Oximetry: 99 (RA) Pulse Ox Interpretation: Normal Medical Decision Making Medical Decision Making: Initial Impression: Dizziness; headache Initial Plan: * EKG * CBC * BMP * Meclizine 25mg PO * NS 1 liter bolus * Reglan 10mg IVP * Tylenol 650mg PO * Accucheck Time: 1956 EKG: NSR at [address] elevation. QTC at 446. 1500 CBC, BMP, U/A unremarkable. Accucheck: 88 Patient resting comfortably on re-evaluation. Tolerating PO intake. Seen ambulating to and from the bathroom without difficulty. 1535 On re-evaluation, patient reports resolution of symptoms. On exam, patient remains AAOx3, in no acute distress. Lungs clear to auscultation, cardiac RRR, repeat neuro exam shows no focal findings. Vitals stable. Lab/Diagnostic results d/w the patient in great detail. Diagnosis of dizziness, headache- resolved d/w the patient. Based on history, exam and diagnostic results, plan will be for outpatient follow up with PMD. Patient instructed to follow-up with pmd / referral provided / the clinic in 1- 2 days without fail. Advised to take medication as prescribed. Return to the emergency room at any time for any new or worsening symptoms. Patient states she fully agrees with and understands discharge instructions. States that she agrees with the plan and disposition. Verbalized and repeated discharge instructions and plan. I have given the patient opportunity to ask any additional questions. Scribe Attestation: Documented by Jovita Miranda, acting as a scribe for Nereyda Miguel PA-C. Provider Scribe Attestation: All medical record entries made by the Scribe were at my direction and personally dictated by me. I have reviewed the chart and agree that the record accurately reflects my personal performance of the history, physical exam, medical decision making, and the department course for this patient. I have also personally directed, reviewed, and agree with the discharge instructions and disposition. Disposition - Clinical Impression Clinical Impression: Dizziness, Headache - Patient ED Disposition Is Patient to be Admitted: No Counseled Patient/Family Regarding: Studies Performed, Diagnosis, Need For Followup, Rx Given - Disposition Referrals: Meera Kessler MD [Medical Doctor] - Disposition: Routine/Home Disposition Time: 15:35 Condition: STABLE Additional Instructions: La atencin mdica de emergencia que recibi hoy se dirigi a darling sntomas agudos. Si le recetaron algn medicamento, llnelo y tmelo segn las indicaciones. Los sntomas pueden tardar varios clinton en resolverse. Regrese al Departamento de Emergencias si darling sntomas empeoran, no mejoran o si tiene otros problemas. Comunquese con aguilar mdico dentro de 2 clinton para abdiaziz nueva evaluacin y brown un seguimiento o llame a elijah de los mdicos / clnicas a los que sommers sido referido y que figuran en el formulario de Informacin de visita al paciente que se incluye en aguilar paquete de myesha. Lleve con usted a aguilar consulta de seguimiento toda la docu mentacin que recibi del myesha junto con los medicamentos que est tomando. Nuestro tratamiento no puede reemplazar la atencin mdica continua por parte de un proveedor de atencin primaria (PCP) fuera del departamento de emergencias. Prescriptions: RX: Meclizine [Meclizine*] 25 mg PO Q6 PRN #12 tab PRN Reason: Dizziness Meloxicam [Mobic] 15 mg PO DAILY PRN #10 tab PRN Reason: Headache Instructions: Tension Headache, Headache, Adult, Dizziness, Nonvertigo, (DC) Forms: [facility] (Irish) Print Language: TUNISIAN - POA Present On Arrival: None Results - Lab Results Lab Results: 02/10/18 02/10/18 02/10/18 14:08 14:08 13:55 WBC 6.0 RBC 4.22 Hgb 13.3 Hct 41.0 MCV 97.1 D MCH 31.6 H MCHC 32.6 L RDW 13.3 Plt Count 282 MPV 8.4 Neut % (Auto) 63.9 Lymph % (Auto) 29.4 [place] % (Auto) 5.4 Eos % (Auto) 0.8 Baso % (Auto) 0.5 Neut # (Auto) 3.8 Lymph # (Auto) 1.8 [place] # (Auto) 0.3 Eos # (Auto) 0.1 Baso # (Auto) 0.0 Sodium 139 Potassium 4.4 Chloride 104 Carbon Dioxide 26 Anion Gap 13 BUN 11 Creatinine 0.5 L Est GFR ( Amer) > 60 Est GFR (Non-Af Amer) > 60 Random Glucose 97 Calcium 10.1 Urine Color Straw Urine Clarity Clear Urine pH 7.0 Ur Specific Unity 1.008 Urine Protein Negative Urine Glucose (UA) Neg Urine Ketones Negative Urine Blood Negative Urine Nitrate Negative Urine Bilirubin Negative Urine Urobilinogen 0.2-1.0 Ur Leukocyte Esterase Neg Urine RBC (Auto) < 1
[2018-02-10 14:20] LABS: BASO % 0.5 % (0.0-2.0); EOS # 0.1 K/uL (0.0-0.7); EOS % 0.8 % (0.0-4.0); HEMOGLOBIN 13.3 g/dL (12.0-16.0); LYMPH # 1.8 K/uL (1.0-4.3); LYMPH % 29.4 % (20.0-40.0); MEAN CELL VOLUME 97.1 fl (81.0-99.0); MEAN CORPUSCULAR HEMOGLOBIN 31.6 pg (27.0-31.0); MEAN CORPUSCULAR HGB CONC 32.6 g/dL (33.0-37.0); MEAN PLATELET VOLUME 8.4 fl (7.2-11.7); MONO # 0.3 K/uL (0.0-0.8); MONO % 5.4 % (0.0-10.0); NEUT # 3.8 K/uL (1.8-7.0); NEUT % 63.9 % (50.0-75.0); NRBC % 0.2 % (0.0-0.0); RBC 4.22 Mil/uL (3.80-5.20); RED CELL DISTRIBUTION WIDTH 13.3 % (11.5-14.5)
[2018-02-10 14:25] LABS: BLOOD UREA NITROGEN 11 mg/dl (7-17); CALCIUM 10.1 mg/dL (8.4-10.2); GFR NON-AFRICAN AMERICAN > 60
[2018-02-10 14:31] LABS: URINE BILIRUBIN NEGATIVE (NEGATIVE); URINE BLOOD NEGATIVE (NEGATIVE); URINE CLARITY CLEAR (Clear); URINE COLOR STRAW (YELLOW); URINE GLUCOSE (UA) NEG (Normal); URINE LEUKOCYTE ESTERASE NEG Leu/uL (Negative); URINE PROTEIN NEGATIVE (NEGATIVE); URINE UROBILINOGEN 0.2-1.0 mg/dL (0.2-1.0)
[2018-02-10 15:48] VITALS: BP 130/70; PULSE 88; RESP 16; TEMP 98.1
--- NOTE | 2018-02-11 09:56 | CARD ---
APPROVED REPORT Date of service: 02/10/2018 EKG Measurement Heart [id number] <Conclusion> Normal sinus rhythm Normal ECG
== END 2018-02-10 15:47 | disposition home or self-care (01) ==
LOC: H.ER 12:49
DX: R51 Headache (principal); R42 Dizziness and giddiness
CPT/HCPCS: 80048; 81003; 82948; 85025; 93005; 96361; 96374; 99283; J2765; J7040

== ENCOUNTER 2018-08-05 13:56 | Emergency (ER) | payer MEDICAID ==
[2018-08-05 13:56] VITALS: BMI 23.4
[2018-08-05 14:04] VITALS: RESP 16
--- NOTE | 2018-08-05 15:37 | CARD ---
APPROVED REPORT Date of service: 08/05/2018 EKG Measurement Heart [id number] <Conclusion> Normal sinus rhythm Possible Left atrial enlargement Borderline ECG
[2018-08-05] MEDS ORDERED: Sodium Chloride 0.9% 1,000 ML IV STA (16:40)
[2018-08-05 16:57] LABS: BASO % 0.7 % (0.0-2.0); EOS # 0.2 K/uL (0.0-0.7); EOS % 3.1 % (0.0-4.0); HEMOGLOBIN 12.4 g/dL (12.0-16.0); LYMPH # 1.7 K/uL (1.0-4.3); LYMPH % 27.3 % (20.0-40.0); MEAN CELL VOLUME 95.7 fl (81.0-99.0); MEAN CORPUSCULAR HEMOGLOBIN 31.7 pg (27.0-31.0); MEAN CORPUSCULAR HGB CONC 33.1 g/dL (33.0-37.0); MEAN PLATELET VOLUME 7.8 fl (7.2-11.7); MONO # 0.5 K/uL (0.0-0.8); MONO % 8.2 % (0.0-10.0); NEUT # 3.7 K/uL (1.8-7.0); NEUT % 60.7 % (50.0-75.0); RBC 3.91 Mil/uL (3.80-5.20); RED CELL DISTRIBUTION WIDTH 13.6 % (11.5-14.5); WHITE BLOOD COUNT 6.1 K/uL (4.8-10.8)
--- NOTE | 2018-08-05 17:13 | ED PDOC ---
HPI: General Adult Time Seen by Provider: 08/05/18 16:01 Chief Complaint (Nursing): Dizziness/Lightheaded Chief Complaint (Provider): Headache, dizziness, left sided body pain History Per: Patient History/Exam Limitations: no limitations Have you had recent travel within the past 21 days to any of the following countries: [place], [place], [place] or [place]?: No Current Symptoms Are (Timing): Still Present Additional History Per: Patient Additional Complaint(s): 57yo female, otherwise well, comes to ER reporting mutliple complaints including headache x 4 days. She states the headache is mild and diffuse, and of gradual onset; this is not the worst headache in her lifetime. Patient also reports associated dizziness, which she describes as room spinning; she states she has taken "medications" (unable to recall name) in the past with relief, but does not have any to take currently. She also reports left sided body pain in her left face, arm and leg. She denies any associated left sided weakness, numbness or tingling. She finally reports mild cough and lower abdominal pain as well. No vomiting, diarrhea, weakness, or other complaints. Past Medical History Reviewed: Historical Data, Nursing Documentation, Vital Signs Vital Signs: Last Vital Signs Temp 98.3 F 08/05/18 14:03 Pulse 86 08/05/18 14:03 Resp 16 08/05/18 14:03 BP 133/79 08/05/18 14:03 Pulse Ox 99 08/05/18 14:03 Primary Care Provider: FAMILY PROVIDER,NO - Medical History PMH: Anxiety, Depression, Gastritis, GERD, Osteoporosis, Pancreatitis Denies: Diabetes, Hepatitis, HIV, HTN, Chronic Kidney Disease, Seizures, Sexually Transmitted Disease - Surgical History Surgical History: Appendectomy, Cholecystectomy, - Family History Family History: States: Unknown Family Hx - Home Medications Home Medications: Ambulatory Orders Medication Instructions Recorded Rabeprazole Sodium [Aciphex] 1 tab PO QAM 10/21/16 Sucralfate [Carafate Oral Susp] 1 gm PO DAILY 10/21/16 Famotidine [Pepcid] 20 mg PO DAILY #14 tab 01/03/17 Azithromycin [Zithromax Tri-Doe] 500 mg PO DAILY #3 tablet 03/06/17 Lansoprazole [Prevacid] 30 mg PO DAILY #7 capsule. 03/06/17 Promethazine/Codeine 5 ml PO Q12 PRN #50 ml 03/06/17 [Codeine/Promethazine 10 MG/5 Ml-6.25 MG/5 Ml] Dicyclomine [Bentyl] 20 mg PO BID PRN #30 tab 04/15/17 Dicyclomine [Bentyl] 20 mg PO Q12 PRN #20 tab 06/04/17 Nitrofurantoin Macrocrystals 100 mg PO BID #14 cap 06/04/17 [Macrobid] Ibuprofen [Motrin Tab] 1 tab PO Q6 PRN #20 tab 06/25/17 Tamsulosin [Flomax] 0.4 mg PO DAILY #10 cap 06/25/17 Omeprazole Magnesium [Prilosec Otc] 20 mg PO DAILY #30 tcp 09/02/17 Dicyclomine [Bentyl] 20 mg PO Q12 PRN #20 tab 10/04/17 Gabapentin 300 mg PO HS #15 capsule 11/03/17 traMADol [Ultram] 50 mg PO Q8 #10 tab 11/20/17 Meclizine [Meclizine*] 25 mg PO Q6 PRN #12 tab 02/10/18 Meloxicam [Mobic] 15 mg PO DAILY PRN #10 tab 02/10/18 Meclizine [Antivert] 12.5 mg PO BID #10 tab 08/05/18 - Allergies Allergies/Adverse Reactions: Allergies Allergy/AdvReac Type Severity Reaction Status Date / Time tetracycline Allergy Mild RASH Verified 08/05/18 14:02 iodine Allergy ANAPHYLAXIS Verified 08/05/18 14:02 morphine Allergy ANAPHYLAXIS Verified 08/05/18 14:02 Penicillins Allergy ANAPHYLAXIS Verified 08/05/18 14:02 prednisone Allergy RASH Verified 08/05/18 14:02 Review of Systems ROS Statement: Except As Marked, All Systems Reviewed And Found Negative Constitutional: Negative for: Fever, Chills Cardiovascular: Negative for: Chest Pain Respiratory: Positive for: Cough Gastrointestinal: Positive for: Abdominal Pain Musculoskeletal: Positive for: Arm Pain (left), Leg Pain (left) Neurological: Positive for: Headache, Dizziness. Negative for: Weakness, Numbness Physical Exam - Reviewed Nursing Documentation Reviewed: Yes Vital Signs Reviewed: Yes - Physical Exam Appears: Positive for: Non-toxic, No Acute Distress Head Exam: Positive for: ATRAUMATIC, NORMAL INSPECTION, NORMOCEPHALIC Skin: Positive for: Normal Color, Warm, DRY Eye Exam: Positive for: EOMI, Normal appearance, PERRL Neck: Positive for: Normal, Painless ROM, Supple Cardiovascular/Chest: Positive for: Regular Rate, Rhythm. Negative for: Tachycardia Respiratory: Positive for: Normal Breath Sounds. Negative for: Respiratory Distress Gastrointestinal/Abdominal: Positive for: Normal Exam, Soft. Negative for: Tenderness Back: Positive for: Normal Inspection Extremity: Positive for: Normal ROM. 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 Negative for: Motor/Sensory Deficits - Laboratory Results Result Diagrams: 08/05/18 16:54 08/05/18 16:54 - ECG O2 Sat by Pulse Oximetry: 99 (RA) Pulse Ox Interpretation: Normal Medical Decision Making Medical Decision Makinyo female with headache, dizziness, abdominal pain Plan: -- Labs -- UA -- MEclizine 25mg PO -- Urinalysis -- CT Head w/o contrast -- IV Fluids EKG: NSR at 88 bpm, no acute ischemic changes, QTc 442ms; as read by me Pt. feeling better after meclizine, she reports just very minimal residual dizziness. Haldol IM given. I ambulated pt, she is ambulating with steady gait. Reassessment, much improved, no further dizziness. Pt. ambulating with steady gait. Rx. meclizine written. Scribe Attestation: Documented by Jelly Jordan acting as a scribe for GOYO Dillard. Provider Scribe Attestation: All medical record entries made by the Scribe were at my direction and personally dictated by me. I have reviewed the chart and agree that the record accurately reflects my personal performance of the history, physical exam, medical decision making, and the department course for this patient. I have also personally directed, reviewed, and agree with the discharge instructions and disposition. Disposition - Clinical Impression Clinical Impression: Vertigo - Patient ED Disposition Is Patient to be Admitted: No Counseled Patient/Family Regarding: Studies Performed, Diagnosis, Need For Followup, Rx Given - Disposition Referrals: [facility] [Outside] Disposition: Routine/Home Disposition Time: 19:13 Condition: STABLE Additional Instructions: rest, increase fluids. Return to ED if worse, worsening dizziness, weakness, or other concerns. Prescriptions: Meclizine [Antivert] 12.5 mg PO BID #10 tab Instructions: Vertigo (a Type of Dizziness) (DC) Forms: [facility] (Slovenian) Print Language: HUNGARIAN
[2018-08-05 17:17] LABS: ALB/GLOB RATIO 1.2 (1.0-2.1); ALBUMIN 4.1 g/dL (3.5-5.0); ALT/SGPT 24 U/L (9-52); AST/SGOT 25 U/L (14-36); BLOOD UREA NITROGEN 13 mg/dl (7-17); CALCIUM 9.5 mg/dL (8.4-10.2); GFR NON-AFRICAN AMERICAN > 60
--- NOTE | 2018-08-05 17:32 | CT ---
Date of service: 08/05/2018 PROCEDURE: CT HEAD WITHOUT CONTRAST. HISTORY: headache COMPARISON: Noncontrast head CT performed 01/03/17 TECHNIQUE: Axial computed tomography images were obtained through the head/brain without intravenous contrast. Radiation dose: Total exam DLP = 627.51 mGy-cm. This CT exam was performed using one or more of the following dose reduction techniques: Automated exposure control, adjustment of the mA and/or kV according to patient size, and/or use of iterative reconstruction technique. FINDINGS: HEMORRHAGE: No intracranial hemorrhage. BRAIN: No mass effect or edema. Intracranial atherosclerotic calcifications. Scattered periventricular and subcortical white matter hypodensities, which are nonspecific, but often seen with chronic microvascular ischemic disease. Please note that MRI with diffusion imaging is more sensitive in the detection of acute ischemic event. VENTRICLES: No hydrocephalus. CALVARIUM: Unremarkable. PARANASAL SINUSES: Unremarkable as visualized. No significant inflammatory changes. MASTOID AIR CELLS: Unremarkable as visualized. No inflammatory changes. OTHER FINDINGS: None. IMPRESSION: No acute intracranial pathology identified. Findings as above.
[2018-08-05 17:41] LABS: URINE BILIRUBIN NEGATIVE (NEGATIVE); URINE BLOOD NEGATIVE (NEGATIVE); URINE CLARITY CLEAR (Clear); URINE COLOR STRAW (YELLOW); URINE GLUCOSE (UA) NEG (NEGATIVE); URINE LEUKOCYTE ESTERASE NEG Leu/uL (Negative); URINE PROTEIN NEGATIVE (NEGATIVE); URINE UROBILINOGEN 0.2-1.0 mg/dL (0.2-1.0)
[2018-08-05 19:57] VITALS: BP 126/72; PULSE 81; TEMP 98; O2SAT 100
== END 2018-08-05 19:57 | disposition home or self-care (01) ==
LOC: H.ER 13:56
DX: R42 Dizziness and giddiness (principal); Z86.59 Personal history of other mental and behavioral disorders; M81.0 Age-related osteoporosis without current pathological fracture; Z88.0 Allergy status to penicillin
CPT/HCPCS: 70450; 80053; 81003; 84484; 85025; 93005; 96372; 99285; J1630; J7030